=== PATIENT | male | born 1955 | race Caucasian/White ===

== ENCOUNTER 2019-11-02 12:15 | Inpatient (IN) | payer OTHER, MEDICARE ==
--- NOTE | 2019-11-02 13:11 | ER Document Report ---
ED Medical Screen (RME) - General Chief Complaint: Foot Pain Stated Complaint: LEFT FOOT PAIN Time Seen by Provider: 11/02/19 12:58 Mode of Arrival: Ambulatory Information source: Patient Notes: Patient states he was walking barefoot outside 4 days ago and stepped on something. Patient states since then he has developed redness, pain and swelling to left foot. Patient does have a history of diabetes and is noncompliant with his medications. Family member states that they encouraged him to start taking his diabetic medication 3 days ago. I have greeted and performed a rapid initial assessment of this patient. A comprehensive ED assessment and evaluation of the patient, analysis of test results and completion of the medical decision making process will be conducted by additional ED providers. TRAVEL OUTSIDE OF THE [place] IN LAST 30 DAYS: No - Related Data Allergies/Adverse Reactions: No Known Allergies Allergy (Unverified 02/13/15 18:48) Home Medications: Glipiside, Atorvastatin, Past Medical History - Past Medical History Cardiac Medical History: Reports: Hx Hypertension Endocrine Medical History: Reports: Hx Diabetes Mellitus Type 2 Renal/ Medical History: Reports: Hx Kidney Stones Physical Exam - Vital signs Vitals: Temp Pulse Resp BP Pulse Ox 97.6 F 93 16 159/64 H 99 11/02/19 12:20 11/02/19 12:20 11/02/19 12:20 11/02/19 12:20 11/02/19 12:20 - General Notes: Left pump tender, swollen and erythematous, puncture wound to plantar surface of left foot. Course - Vital Signs Vital signs: Temp Pulse Resp BP Pulse Ox 97.6 F 93 16 159/64 H 99 11/02/19 12:20 11/02/19 12:20 11/02/19 12:20 11/02/19 12:20 11/02/19 12:20
[2019-11-02 13:39] LABS: ABSOLUTE MONOCYTES (AUTO) 1.2 10^3/uL (0.1-1.4); ABSOLUTE NEUT (AUTO) 14.4 10^3/uL (1.7-8.2); BASOPHILS % (AUTO) 0.2 % (0-2); HEMATOCRIT 39.1 % (37.9-51.0); HEMOGLOBIN 13.6 g/dL (13.5-17.0); MEAN CORPUSCULAR HGB CONC 34.8 g/dL (32.0-36.0); MEAN CORPUSCULAR VOLUME 83 fl (80-97); MONOCYTES % (AUTO) 7.4 % (3-13); PLATELET COUNT 281 10^3/uL (150-450); RED BLOOD COUNT 4.69 10^6/uL (4.35-5.55); RED CELL DISTRIBUTION WIDTH 12.7 % (11.5-14.0); SEGMENTED NEUTROPHILS % (AUTO) 86.4 % (42-78); TOTAL CELLS COUNTED % (AUTO) 100 %; WHITE BLOOD COUNT 16.7 10^3/uL (4.0-10.5)
[2019-11-02 14:00] LABS: ALBUMIN 4.1 g/dL (3.5-5.0); ALKALINE PHOSPHATASE 99 U/L (38-126); ANION GAP 14 (5-19); ASPARTATE AMINO TRANSFERASE 21 U/L (17-59); BILIRUBIN,DIRECT 0.1 mg/dL (0.0-0.4); BILIRUBIN,TOTAL 1.3 mg/dL (0.2-1.3); BLOOD UREA NITROGEN 12 mg/dL (7-20); CALCIUM 9.2 mg/dL (8.4-10.2); CARBON DIOXIDE 25 mmol/L (22-30); CHLORIDE 97 mmol/L (98-107); GLUCOSE 271 mg/dL (75-110); POTASSIUM 3.9 mmol/L (3.6-5.0); TOTAL PROTEIN 8.1 g/dL (6.3-8.2)
--- NOTE | 2019-11-02 14:30 | ER Document Report ---
ED Extremity Problem, Lower - General Chief Complaint: Foot Pain Stated Complaint: LEFT FOOT PAIN Time Seen by Provider: 11/02/19 12:58 Mode of Arrival: Ambulatory Notes: Patient is a 64-year-old male with a history of type 2 diabetes and hypertension who presents to the emergency department with a chief complaint of left foot pain. Patient reports on which was 4 days ago he was walking barefoot around his house when he stepped on an object. Patient is unsure what type of object this was. Patient reports since then he has had increased swelling and redness to the left foot that is now streaking up the left lower leg. Patient reports minor pain. Patient reports that he is a type II diabetic and has been off of his medication for months. Patient reports on his family member made him start taking his glipizide again. Patient reports taking 5 mg of glipizide twice daily and has only been compliant for 3 days. Patient denies fever. Patient also reports [facility] and has not been compliant with his hypertension medications. Patient denies nausea, vomiting or diarrhea. Patient reports small amount of drainage coming from the bottom of the left foot. He reports this is bloody in nature. TRAVEL OUTSIDE OF THE [place] IN LAST 30 DAYS: No - Related Data Allergies/Adverse Reactions: No Known Allergies Allergy (Unverified 11/02/19 15:24) Home Medications: Glipiside, Atorvastatin, Past Medical History - General Information source: Patient - Social History Smoking Status: Unknown if Ever Smoked Lives with: Family Family History: Reviewed & Not Pertinent Patient has suicidal ideation: No Patient has homicidal ideation: No - Past Medical History Cardiac Medical History: Reports: Hx Hypertension Pulmonary Medical History: Reports: None EENT Medical History: Reports: None Neurological Medical History: Reports: None Endocrine Medical History: Reports: Hx Diabetes Mellitus Type 2 Renal/ Medical History: Reports: Hx Kidney Stones Malignancy Medical History: Reports None GI Medical History: Reports: None Musculoskeletal Medical History: Reports None Skin Medical History: Reports None Psychiatric Medical History: Reports: None Traumatic Medical History: Reports: None Infectious Medical History: Reports: None Review of Systems - Review of Systems Constitutional: No symptoms reported EENT: No symptoms reported Cardiovascular: No symptoms reported Respiratory: No symptoms reported Gastrointestinal: See HPI Genitourinary: No symptoms reported Male Genitourinary: No symptoms reported Musculoskeletal: See HPI Skin: See HPI Hematologic/Lymphatic: No symptoms reported Neurological/Psychological: No symptoms reported Physical Exam - Vital signs Vitals: Temp Pulse Resp BP Pulse Ox 97.6 F 93 16 159/64 H 99 11/02/19 12:20 11/02/19 12:20 11/02/19 12:20 11/02/19 12:20 11/02/19 12:20 Interpretation: Hypertensive - Notes Notes: GENERAL: Well-appearing, well-nourished and in no acute distress. HEAD: Atraumatic, normocephalic. EYES: Pupils equal round and reactive to light, extraocular movements intact, sclera anicteric, conjunctiva are normal. ENT: TMs normal, nares patent, oropharynx clear without exudates. Moist mucous membranes. NECK: Normal range of motion, supple without lymphadenopathy or JVD. LUNGS: Breath sounds clear to auscultation bilaterally and equal. No wheezes rales or rhonchi. HEART: Regular rate and rhythm without murmurs, rubs or gallops. ABDOMEN: Soft, nontender, normoactive bowel sounds. No guarding, no rebound. No masses appreciated. BACK: No cervical, thoracic, lumbar midline tenderness. No saddle anesthesia, normal distal neurovascular exam. GENITOURINARY: Deferred. EXTREMITIES: Patient does have significant erythema, edema and warmth noted to the left foot. There is streaking of redness up into the left lower extremity. Patient has a palpable +2 dorsalis pedis and posterior tibial pulse. +1 pitting edema to the left foot. There is an open wound to the plantar aspect of the left foot that is draining a small amount of blood. NEUROLOGICAL: Cranial nerves II through XII grossly intact. Normal speech, normal gait. PSYCH: Normal mood, normal affect. SKIN: Warm, Dry, normal turgor, no rashes or lesions noted. Course - Re-evaluation Re-evalutation: 11/02/19 16:52 The hospitalist was consulted for admission due to to significant left foot infection. Patient was updated and Dr. Piper to place admission orders and see patient. - Vital Signs Vital signs: Temp Pulse Resp BP Pulse Ox 99.1 F 95 16 148/68 H 100 11/02/19 16:48 11/02/19 16:48 11/02/19 16:48 11/02/19 16:48 11/02/19 16:48 - Laboratory Result Diagrams: 11/02/19 13:22 11/02/19 13:22 Laboratory results interpreted by me: 11/02/19 11/02/19 13:22 13:22 WBC 16.7 H Lymph % (Auto) 6.0 L Absolute Neuts (auto) 14.4 H Seg Neutrophils % 86.4 H Sodium 135.5 L Chloride 97 L Glucose 271 H 11/02/19 14:46 Patient has leukocytosis of 16.7. Laboratory 11/02/19 11/02/19 13:22 13:22 WBC 16.7 H RBC 4.69 Hgb 13.6 Hct 39.1 MCV 83 MCH 29.0 MCHC 34.8 RDW 12.7 Plt Count 281 Lymph % (Auto) 6.0 L Young % (Auto) 7.4 Eos % (Auto) 0.0 Baso % (Auto) 0.2 Absolute Neuts (auto) 14.4 H Absolute Lymphs (auto) 1.0 Absolute Monos (auto) 1.2 Absolute Eos (auto) 0.0 Absolute Basos (auto) 0.0 Seg Neutrophils % 86.4 H Sodium 135.5 L Potassium 3.9 Chloride 97 L Carbon Dioxide 25 Anion Gap 14 BUN 12 Creatinine 0.88 Est GFR ( Amer) > 60 Est GFR (MDRD) Non-Af > 60 Glucose 271 H Calcium 9.2 Total Bilirubin 1.3 Direct Bilirubin 0.1 Neonat Total Bilirubin Not Reportable Neonat Direct Bilirubin Not Reportable Neonat Indirect Bili Not Reportable AST 21 ALT 19 Alkaline Phosphatase 99 Total Protein 8.1 Albumin 4.1 - Diagnostic Test Radiology reviewed: Reports reviewed Radiology results interpreted by me: 11/02/19 16:53 Foot X-Ray 11/02/19 13:08 IMPRESSION: Soft tissue emphysema at the left foot, concerning for necrotizing soft tissue infection. Small radiopaque densities within the plantar soft tissues in between the 3rd and 4th proximal phalanges, please correlate with clinical exam to evaluate for foreign bodies. No plain radiographic evidence for osteomyelitis. If there is persistent clinical concern, contrast-enhanced MRI can be obtained for further evaluation. Discharge - Discharge Clinical Impression: Cellulitis of left foot, Left foot infection Diabetes type 2, uncontrolled Qualifiers: Glycemic state: with hyperglycemia Qualified Code(s): E11.65 - Type 2 diabetes mellitus with hyperglycemia Leukocytosis Qualifiers: Leukocytosis type: unspecified Qualified Code(s): D72.829 - Elevated white blood cell count, unspecified Condition: Stable Disposition: ADMITTED INPATIENT Admitting Provider: Veronique (Hospitalist) Unit Admitted: Medical Floor
--- NOTE | 2019-11-02 14:47 | RADIOLOGY REPORT (SQ) ---
EXAM DESCRIPTION: FOOT LEFT COMPLETE COMPLETED DATE/TIME: 11/02/2019 2:21 pm REASON FOR STUDY: PW, infection COMPARISON: None. NUMBER OF VIEWS: Three views. TECHNIQUE: AP, lateral and oblique radiographic images acquired of the left foot. LIMITATIONS: None. FINDINGS: MINERALIZATION: Normal. BONES: No acute fracture or dislocation. No cortical lucency or irregularity to suggest osteomyeliti s. Mild degenerative changes at the 1st metatarsophalangeal joint. Degenerative changes are noted a t the midfoot. There is a bony spur at the plantar aspect of the calcaneus. SOFT TISSUES: There is soft tissue emphysema at the dorsum of the midfoot and at the plantar aspect i n the region of the metatarsal heads. Radiopaque densities measuring up to 4 mm are noted within the plantar soft tissues in between the 3rd and 4th proximal phalanges. Vascular calcifications are pre sent. IMPRESSION: Soft tissue emphysema at the left foot, concerning for necrotizing soft tissue infection . Small radiopaque densities within the plantar soft tissues in between the 3rd and 4th proximal pha langes, please correlate with clinical exam to evaluate for foreign bodies. No plain radiographic ev idence for osteomyelitis. If there is persistent clinical concern, contrast-enhanced MRI can be obta ined for further evaluation. TECHNICAL DOCUMENTATION: JOB ID: [id number] [id number] 2010 [employer]- All Rights Reserved Reading location - IP/workstation name: [email or web address]
[2019-11-02] MEDS ORDERED: PROMETHAZINE HCL INJ 25 MG/1 ML VIAL IV PRN ×2 (15:26→20:31)
[2019-11-02] MEDS ORDERED: OXYCODONE-ACETAMINOPHEN 5-325 MG TABLET PO PRN (15:26)
[2019-11-02] MEDS ORDERED: ONDANSETRON HCL INJ/PF 4 MG/2 ML SDV IV PRN (15:26)
[2019-11-02] MEDS ORDERED: IPRATROPIUM/ALBUTEROL 0.5-2.5 MG/3 ML AMPUL NEB PRN (15:26)
[2019-11-02] MEDS ORDERED: NORMAL SALINE 1000 ML 1,000 ML IV PRN (15:26)
[2019-11-02] MEDS ORDERED: VANCOMYCIN HCL 0 MG in DEXTROSE 5%-WATER 250 ML IV NR (15:30)
[2019-11-02] MEDS ORDERED: DEXTROSE 40% GEL 15 GM TUBE PO PRN ×2 (15:31)
[2019-11-02] MEDS ORDERED: DEXTROSE 50%-WATER 25 GM/50 ML DISP.SYRIN IV PRN ×2 (15:31)
[2019-11-02] MEDS ORDERED: GLUCAGON,HUMAN RECOMB 1 MG INJ IM PRN (15:31)
--- NOTE | 2019-11-02 16:28 | PDOC H&P ---
History of Present Illness Admission Date/PCP: 11/02/19 15:49 History of Present Illness: BISMARK IBARRA is a 64 year old male past medical history of hypertension, hyperlipidemia, uncontrolled diabetes, presenting to ED complaining of left lower extremity swelling and pain. Patient stating that about 4 days ago he stepped on a pebble or a thorn did not make much of it went home, following day he noted some swelling, but is starting yesterday he noted that his left foot was becoming more swollen, tender, and erythematous. Pain is about 3/5 sharp and pulsating radiating proximally. Denies any fever, chills, headache, vision changes, shortness of breath, chest pain, nausea, abdominal pain, diarrhea, constipation or any urinary symptoms. Patient has history of diabetes nonco mpliant with medication but he started taking glipizide 5 mg p.o. twice daily 3 days ago. Past Medical History Cardiac Medical History: Reports: Hypertension Endocrine Medical History: Reports: Diabetes Mellitus Type 2 Social History Smoking Status: Unknown if Ever Smoked Family History Family History: Reviewed & Not Pertinent Parental Family History Reviewed: Yes Children Family History Reviewed: Yes Sibling(s) Family History Reviewed.: Yes Medication/Allergy Home Medications: Aspirin [Ecotrin 81 mg EC Tablet] 81 mg PO DAILY 11/02/19 Glipizide [Glucotrol 5 mg Tablet] 5 mg PO BID 11/02/19 Allergies/Adverse Reactions: No Known Allergies Allergy (Unverified 11/02/19 15:24) Review of Systems Review of Systems: as per hpi Physical Exam Vital Signs: Temp Pulse Resp BP Pulse Ox 97.6 F 93 16 159/64 H 99 11/02/19 12:20 11/02/19 12:20 11/02/19 12:20 11/02/19 12:20 11/02/19 12:20 Intake & Output 11/01/19 11/02/19 11/03/19 06:59 06:59 06:59 Weight 106.3 kg General appearance: PRESENT: no acute distress, well-developed, well-nourished Head exam: PRESENT: atraumatic, normocephalic Respiratory exam: PRESENT: clear to auscultation [place]. ABSENT: rales, rhonchi, wheezes Cardiovascular exam: PRESENT: RRR. ABSENT: diastolic murmur, rubs, systolic murmur GI/Abdominal exam: PRESENT: normal bowel sounds, soft. ABSENT: distended, guarding, mass, organolmegaly, rebound, tenderness Extremities exam: PRESENT: tenderness, other - Left foot diffuse swelling and erythema extending proximally to mid cuevas. There is a puncture site at the medial plantar aspect of the left foot with blood mixed with pus coming out. No crepitation appreciated on palpation of the left lower extremity. Neurological exam: PRESENT: alert, awake, oriented to person, oriented to place, oriented to time, oriented to situation, CN II-XII grossly intact. ABSENT: motor sensory deficit Results Laboratory Results: 11/02/19 13:22 11/02/19 13:22 11/02/19 11/02/19 13:22 13:22 WBC 16.7 H RBC 4.69 Hgb 13.6 Hct 39.1 MCV 83 MCH 29.0 MCHC 34.8 RDW 12.7 Plt Count 281 Seg Neutrophils % 86.4 H Sodium 135.5 L Potassium 3.9 Chloride 97 L Carbon Dioxide 25 Anion Gap 14 BUN 12 Creatinine 0.88 Est GFR ( Amer) > 60 Glucose 271 H Calcium 9.2 Total Bilirubin 1.3 AST 21 Alkaline Phosphatase 99 Total Protein 8.1 Albumin 4.1 Impressions: Foot X-Ray 11/02/19 13:08 IMPRESSION: Soft tissue emphysema at the left foot, concerning for necrotizing soft tissue infection. Small radiopaque densities within the plantar soft tissues in between the 3rd and 4th proximal phalanges, please correlate with clinical exam to evaluate for foreign bodies. No plain radiographic evidence for osteomyelitis. If there is persistent clinical concern, contrast-enhanced MRI can be obtained for further evaluation. Assessment and Plan - Diagnosis (1) Necrotizing fasciitis of lower leg Is this a current diagnosis for this admission?: Yes Plan: Left foot cellulitis or possible necrotizing fasciitis given x-ray findings. We will start on IV vancomycin and Rocephin and consult surgery for evaluation. (2) Cellulitis of left foot Is this a current diagnosis for this admission?: Yes Plan: Left foot cellulitis or possible necrotizing fasciitis given x-ray findings. We will start on IV vancomycin and Rocephin and consult surgery for evaluation. (3) Hypertension Is this a current diagnosis for this admission?: Yes Plan: Euvolemic. Normotensive. Restart home meds. Adjust meds as needed. Outpatient PCP follow-up. (4) Hyperlipidemia Is this a current diagnosis for this admission?: Yes Plan: Restart home meds. (5) Diabetes type 2, uncontrolled Qualifiers: Glycemic state: with hyperglycemia Qualified Code(s): E11.65 - Type 2 diabe lamont mellitus with hyperglycemia Is this a current diagnosis for this admission?: Yes Plan: History of noncompliance. Will obtain A1c. Diabetic diet. Diabetic education. Basal, prandial and correctional insulin. Hypoglycemic protocol. Accu-Chek.
[2019-11-02] MEDS: INSULIN LISPRO 100 UNIT/ML 3 ML VIAL SUBCUT SCH ×2 (16:58→22:59)
[2019-11-02] MEDS: CEFTRIAXONE 1 GM/D5W RTU 1 GM/50 ML RTUPB IV SCH (16:59)
[2019-11-02] MEDS: INSULIN GLARGINE,HUM.REC.ANLOG 1,000 UNIT/10 ML VIAL SUBCUT SCH (17:00)
--- NOTE | 2019-11-02 18:28 | PDOC CONSULTATION ---
Consultation Consult Date: 11/02/19 Provider Consulted: GEORGINA BENOIT Consult reason:: left foot gas gangrene History of Present Illness Admission Date/PCP: 11/02/19 15:49 History of Present Illness: BISMARK IBARRA is a 64 year old male, with type 2 diabetes, who presents emergency room with a complaint of left foot redness, swelling, pain, discoloration of the third and fourth proximal toes together with an ulcer of the plantar surface just below the third/fourth toe. The patient gives a history of walking outside barefoot when his left foot plantar surface was injured by in a sharp item, this happened 4 days ago. Since then the patient has been experiencing worsening of pain redness swelling of the foot. An x-ray of the left foot demonstrates subcutaneous gas no evidence of osteomyelitis possible foreign body between the third and fourth proximal toes. His white blood cell count is elevated 16,600. Past Medical History Cardiac Medical History: Reports: Hypertension Pulmonary Medical History: Reports: None EENT Medical History: Reports: None Neurological Medical History: Reports: None Endocrine Medical History: Reports: Diabetes Mellitus Type 2 Malignancy Medical History: Reports: None GI Medical History: Reports: None Musculoskeltal Medical History: Reports: None Skin Medical History: Reports: None Psychiatric Medical History: Reports: None Traumatic Medical History: Reports: None Infectious Medical History: Reports: None Social History Lives with: Family Smoking Status: Unknown if Ever Smoked - Advance Directive Resuscitation Status: Full Code Family History Family History: Reviewed & Not Pertinent Parental Family History Reviewed: No Children Family History Reviewed: No Sibling(s) Family History Reviewed.: No Medication/Allergy Home Medications: Aspirin [Ecotrin 81 mg EC Tablet] 81 mg PO DAILY 11/02/19 Glipizide [Glucotrol 5 mg Tablet] 5 mg PO BID 11/02/19 Allergies/Adverse Reactions: No Known Allergies Allergy (Unverified 11/02/19 15:24) Physical Exam Vital Signs: Temp Pulse Resp BP Pulse Ox 99.2 F 96 16 143/65 H 98 11/02/19 17:34 11/02/19 17:34 11/02/19 17:34 11/02/19 17:34 11/02/19 17:34 Intake & Output 11/01/19 11/02/19 11/03/19 06:59 06:59 06:59 Weight 105.9 kg General appearance: PRESENT: mild distress, obese, well-developed, well- nourished Head exam: PRESENT: atraumatic, normocephalic Eye exam: PRESENT: EOMI Mouth exam: PRESENT: moist, neck supple Teeth exam: PRESENT: edentulous - Partially, poor dentation Neck exam: PRESENT: full ROM Respiratory exam: PRESENT: clear to auscultation [place] Cardiovascular exam: PRESENT: RRR Pulses: PRESENT: other - Right foot = nonpalpable dorsalis pedis and posterior tibialis pulses GI/Abdominal exam: PRESENT: soft Rectal exam: PRESENT: deferred Extremities exam: PRESENT: full ROM, +2 edema - Left distal leg and foot, associated with edema of the dorsal left foot aspect and decreased sensation of the entire left foot (both dorsal and plantar surfaces) Musculoskeletal exam: PRESENT: full ROM Neurological exam: PRESENT: alert, awake, oriented to time, CN II-XII grossly intact Psychiatric exam: PRESENT: anxious Skin exam: PRESENT: warm Results Laboratory Results: 11/02/19 13:22 11/02/19 13:22 11/02/19 11/02/19 11/02/19 13:22 13:22 13:22 WBC 16.7 H RBC 4.69 Hgb 13.6 Hct 39.1 MCV 83 MCH 29.0 MCHC 34.8 RDW 12.7 Plt Count 281 Seg Neutrophils % 86.4 H Sodium 135.5 L Potassium 3.9 Chloride 97 L Carbon Dioxide 25 Anion Gap 14 BUN 12 Creatinine 0.88 Est GFR ( Amer) > 60 Glucose 271 H Calcium 9.2 Total Bilirubin 1.3 AST 21 Alkaline Phosphatase 99 C-Reactive Protein 220.3 H Total Protein 8.1 Albumin 4.1 Impressions: Foot X-Ray 11/02/19 13:08 IMPRESSION: Soft tissue emphysema at the left foot, concerning for necrotizing soft tissue infection. Small radiopaque densities within the plantar soft tissues in between the 3rd and 4th proximal phalanges, please correlate with clinical exam to evaluate for foreign bodies. No plain radiographic evidence for osteomyelitis. If there is persistent clinical concern, contrast-enhanced MRI can be obtained for further evaluation. Assessment & Plan - Diagnosis (1) Left foot gas gangrene Is this a current diagnosis for this admission?: Yes (2) Diabetes type 2, uncontrolled Qualifiers: Glycemic state: with hyperglycemia Qualified Code(s): E11.65 - Type 2 diabetes mellitus with hyperglycemia Is this a current diagnosis for this admission?: Yes - Plan Summary Plan Summary: Assessment: Left foot dark discoloration of the third and fourth toe together with diffuse fixed erythema of the dorsum of the foot and ulceration over the plantar surface just below the third and fourth toes Leukocytosis 16,700 X-ray left foot shows subcutaneous gas in the dorsal aspect a plantar aspect of the forefoot Poorly controlled type 2 diabetes Patient n.p.o. since yesterday except for water Plan: MRI left foot Aggressive debridement left forefoot with removal of third and fourth toe, possible removal of the toes, as of first stage operation Procedure, risks, benefits, complications, including the possibility of a transmetatarsal or below-knee amputation, bleeding, aggressive spreading infection, stroke, heart attack and have been discussed with the patient extends all the above decides to proceed after the MRI has been done Second stage operation will be done in the next 1 to 2 days either to close the wound or to extend/complete the amputation once the skin infection is under better local control Continue IV antibiotics Keep n.p.o. Preop stat EKG
[2019-11-02] MEDS ORDERED: METRONIDAZOLE 500 MG/NS RTU 500 MG/100 ML RTUPB IV ONE ×2 (18:45→19:31)
[2019-11-02] MEDS ORDERED: FENTANYL CITRATE INJ/PF 100 MCG/2 ML AMPUL ONE (19:10)
[2019-11-02] MEDS ORDERED: KETAMINE HCL INJ 500 MG/10 ML VIAL ONE (19:10)
[2019-11-02] MEDS ORDERED: MIDAZOLAM 2 MG/2 ML INJ ONE (19:10)
[2019-11-02] MEDS ORDERED: PROPOFOL INJ 200 MG/20 ML VIAL IV ONE ×2 (19:10→20:33)
[2019-11-02] MEDS ORDERED: LIDOCAINE 1% INJ-PF (10 MG/ML) 30 ML SDV ONE (19:23)
[2019-11-02] MEDS ORDERED: BUPIVACAINE HCL 0.25 % INJ/PF (2.5 MG/1 ML) 30 ML VIAL ONE (19:23)
[2019-11-02] MEDS ORDERED: VANCOMYCIN HCL INJ 500 MG VIAL ONE (19:31)
[2019-11-02] MEDS ORDERED: METOCLOPRAMIDE HCL INJ/PF 10 MG/2 ML SDV ONE (19:49)
[2019-11-02] MEDS ORDERED: ONDANSETRON HCL INJ/PF 4 MG/2 ML SDV ONE (19:49)
--- NOTE | 2019-11-02 19:55 | RADIOLOGY REPORT (SQ) ---
EXAM DESCRIPTION: MRI LT LOWER EXTREMITY WITHOUT COMPLETED DATE/TIME: 11/02/2019 6:16 pm COMPARISON: Radiographs left foot, same date. TECHNIQUE: Multiplanar imaging of the left foot to include T1-weighted, postcontrast T1-weighted, an d T2-weighted images. CONTRAST TYPE AND DOSE: 20 mL Dotarem. RENAL FUNCTION: GFR > 60. LIMITATIONS: There is significant motion artifact on all series which limits evaluation. Extremely limited evaluation of the phalanges. FINDINGS: BONE MARROW: Extremely limited evaluation due to degree of motion. Within the limits of t he exam there is no evidence of alteration of bone marrow signal. SOFT TISSUES: Soft tissue swelling and skin thickening at the plantar surface overlying the 3rd digit distal metatarsal/proximal phalanx. Tiny foci of hypointense signal within this area of likely repr esent foci of gas. Radiopaque foreign bodies are not excluded. No focal drainable abscess. Normal appearance the tendons. OTHER: No other significant finding. IMPRESSION: 1. Extremely limited evaluation due to degree of motion on all series. Within the limits of the exam ination, there is no evidence of osteomyelitis. 2. Skin thickening and subcutaneous edema involving the plantar surface at the distal aspect of the 3 rd digit metatarsal and proximal phalanx. Foci of gas as seen on radiograph. The possible radiopaqu e foreign bodies are not definitely identified on MRI. COMMENT: Findings discussed with Dr. Greenberg on 11/02/2019 at 1949 hours. TECHNICAL DOCUMENTATION: JOB ID: [id number] 2010 [employer]- All Rights Reserved REASON FOR STUDY: Possible necrotizing fascitis Possible necrotizing fascitis. Infection. Left foot infection. Stepped on something barefoot on 10/28/2019. Burning, drainage, infection, radiating pain and redness, open wound and swelling at the sparkle ntar surface left foot. Radiograph demonstrated radiopaque foreign body and subcutaneous gas between the 3rd and 4th digit proximal phalanges. Diabetic. Reading location - IP/workstation name: [email or web address]
[2019-11-02] MEDS: VANCOMYCIN HCL 1,000 MG in DEXTROSE 5%-WATER 250 ML IV SCH (19:56)
[2019-11-02 20:26] LABS: URINE AMPHETAMINES SCREEN NEGATIVE; URINE BARBITURATES SCREEN NEGATIVE; URINE BENZODIAZEPINES SCREEN NEGATIVE; URINE COCAINE SCREEN NEGATIVE; URINE MARIJUANA (THC) SCREEN NEGATIVE; URINE METHADONE SCREEN NEGATIVE; URINE PHENCYCLIDINE SCREEN NEGATIVE
[2019-11-02] MEDS ORDERED: MEPERIDINE HCL/PF INJ 25 MG/1 ML DISP.SYRIN IV PRN (20:31)
[2019-11-02] MEDS ORDERED: DIPHENHYDRAMINE HCL 50 MG/ML VIAL IV PRN (20:31)
[2019-11-02] MEDS ORDERED: MORPHINE SULFATE 10 MG/ML INJ IV PRN (20:31)
[2019-11-02] MEDS ORDERED: FENTANYL CITRATE INJ/PF 100 MCG/2 ML AMPUL IV PRN ×3 (20:31)
[2019-11-02] MEDS ORDERED: ACETAMINOPHEN 1,000 MG/100 ML RTUPB IV ONE ×2 (21:37→22:30)
--- NOTE | 2019-11-02 21:56 | Operative Report ---
Nonrecallable Operative Report DATE OF SURGERY: 11/02/19 PREOPERATIVE DIAGNOSIS: Gas gangrene of the left third and fourth toes extending to the forefoot POSTOPERATIVE DIAGNOSIS: Same; abscess of the left forefoot OPERATION: Left transmetatarsal amputation SURGEON: GEORGINA BENOIT ANESTHESIA: Other - 3 mL's 1% lidocaine TISSUE REMOVED OR ALTERED: Left forefoot COMPLICATIONS: None ESTIMATED BLOOD LOSS: Less than 5 mL INTRAOPERATIVE FINDINGS: Purulent collection and necrosis of the left forefoot plantar surface as well as necrosis of the deep left forefoot soft tissues PROCEDURE: The procedure was done in the procedure room, the patient was placed in supine position, deep MAC anesthesia was induced by anesthesiologist, Mai catheter was inserted, the left foot and lower leg were prepped and draped in a sterile fashion. An Esmarch bandage was placed around the foot and ankle and the tourniquet was inflated to about 150 mm above the systolic blood pressure. The Esmarch band was removed. Skin just proximal to the toes was marked with a surgical marker and a skin incision was made with a #10 blade extending from the medial to the lateral aspect of the foot on both the dorsal and plantar surface of the foot. This was deepened to the subcutaneous tissue with Bovie. Necrotic tissue as well as purulent collection was identfied during the section. This was carried more proximally until good healthy tissue was identified. At this point the tarsal bones were cleared from the soft tissue using a periosteal elevator and a surgical saw was used to divide the metatarsal bones along the same line. The forefoot was then removed from the surgical field and sent to pathology. The surgical field was irrigated with normal saline until clear. The skin edges of the dorsal and plantar flaps were trimmed to length, a separate stab wound was made and 1/4 inch [place] drain was inserted through the incision and left deep in the TMA wound. The skin edges approximated with interrupted deep inverted 0 Vicryl sutures and the skin edges were closed with interrupted horizontal mattress 2-0 nylon sutures. Xeroform gauze, fluff 4 x 4's, ABD Kerlix roll and John [place] bandage were applied following deflation of the tourniquet. The tourniquet time was 53 minutes The patient tolerated procedure well and was transferred to recovery room in satisfactory conditions.
[2019-11-02] MEDS ORDERED: NORMAL SALINE 1000 ML 1,000 ML IV ONE (22:30)
[2019-11-02] MEDS: FAMOTIDINE 20 MG TABLET PO SCH (23:00)
[2019-11-03] MEDS: METRONIDAZOLE 500 MG/NS RTU 500 MG/100 ML RTUPB IV SCH ×5 (00:11→23:40)
[2019-11-03] MEDS: KETOROLAC TROMETHAMINE INJ/PF 30 MG/1 ML SDV IV SCH ×5 (00:11→23:44)
[2019-11-03] MEDS: NORMAL SALINE 1000 ML 1,000 ML IV PRN (00:11)
[2019-11-03] MEDS ORDERED: VANCOMYCIN HCL INJ 1000 MG VIAL ONE (01:37)
[2019-11-03] MEDS ORDERED: RINGERS SOLUTION,LACTATED 1,000 ML IV ONE (03:00)
[2019-11-03] MEDS: VANCOMYCIN HCL 1,000 MG in DEXTROSE 5%-WATER 250 ML IV SCH (03:29)
[2019-11-03] MEDS: ACETAMINOPHEN 325 MG TABLET PO PRN ×2 (03:48→10:15)
[2019-11-03 06:32] LABS: HEMATOCRIT 30.1 % (37.9-51.0); MEAN CORPUSCULAR HGB CONC 34.8 g/dL (32.0-36.0); MEAN CORPUSCULAR VOLUME 83 fl (80-97); PLATELET COUNT 202 10^3/uL (150-450); RED BLOOD COUNT 3.62 10^6/uL (4.35-5.55); RED CELL DISTRIBUTION WIDTH 12.7 % (11.5-14.0); WHITE BLOOD COUNT 11.6 10^3/uL (4.0-10.5)
[2019-11-03 06:33] LABS: INTERNATIONAL RATION (INR) 1.29; PROTHROMBIN TIME 16.2 SEC (11.4-15.4)
[2019-11-03 06:34] LABS: PARTIAL THROMBOPLASTIN TIME 39.7 SEC (23.5-35.8)
[2019-11-03 06:41] LABS: HEMOGLOBIN 10.5 g/dL (13.5-17.0)
[2019-11-03 06:46] LABS: ANION GAP 7 (5-19); BLOOD UREA NITROGEN 13 mg/dL (7-20); CALCIUM 7.5 mg/dL (8.4-10.2); CARBON DIOXIDE 23 mmol/L (22-30); CHLORIDE 105 mmol/L (98-107); CHOLESTEROL 108.86 mg/dL (0-200); GLUCOSE 187 mg/dL (75-110); POTASSIUM 3.9 mmol/L (3.6-5.0); TRIGLYCERIDES 82 mg/dL (<150)
[2019-11-03 06:56] LABS: DIRECT LDL 76 mg/dL (<100)
[2019-11-03] MEDS: INSULIN LISPRO 100 UNIT/ML 3 ML VIAL SUBCUT SCH ×4 (07:58→22:14)
[2019-11-03] MEDS ORDERED: ENOXAPARIN SODIUM INJ 40 MG/0.4 ML DISP.SYRIN SUBCUT SCH (10:00)
[2019-11-03] MEDS: FAMOTIDINE 20 MG TABLET PO SCH ×2 (10:15→22:15)
[2019-11-03] MEDS: DOCUSATE SODIUM 100 MG CAPSULE PO SCH (10:15)
[2019-11-03] MEDS: ENOXAPARIN SODIUM INJ 40 MG/0.4 ML DISP.SYRIN SUBCUT SCH (10:15)
[2019-11-03] MEDS: INSULIN GLARGINE,HUM.REC.ANLOG 1,000 UNIT/10 ML VIAL SUBCUT SCH (10:16)
[2019-11-03] MEDS: VANCOMYCIN HCL 1,250 MG in DEXTROSE 5%-WATER 250 ML IV SCH ×2 (10:17→17:36)
--- NOTE | 2019-11-03 13:34 | EKG REPORT ---
SEVERITY:- ABNORMAL ECG - SINUS RHYTHM LEFT VENTRICULAR HYPERTROPHY NONSPECIFIC ST-T CHANGES- INFERIOR LEADS : Confirmed by: Bryn Beckman MD 03-Nov-2019 13:33:25
--- NOTE | 2019-11-03 16:25 | PDOC PROGRESS REPORT ---
Subjective Progress Note for:: 11/03/19 Subjective:: No complaints, according to the patient's daughter the patient has been moving his left lower extremity quite actively today and has a spot of fresh blood through the clean dressings due to the patient aggressive left lower extremity activity Reason For Visit: CELLULITIS Physical Exam Vital Signs: Temp Pulse Resp BP Pulse Ox 97.8 F 80 18 125/62 96 11/03/19 15:12 11/03/19 15:12 11/03/19 15:12 11/03/19 15:12 11/03/19 15:12 Intake & Output 11/02/19 11/03/19 11/04/19 06:59 06:59 06:59 Intake Total 2850 240 Output Total 450 300 Balance 2400 -60 Weight 109.9 kg General appearance: PRESENT: no acute distress, obese Extremities exam: PRESENT: other - Left lower extremity = TMA site covered by dressings clean, and intact with medial blood staining Results Laboratory Results: 11/03/19 05:57 11/03/19 05:57 11/02/19 11/03/19 11/03/19 13:22 05:57 05:57 WBC 11.6 H RBC 3.62 L Hgb 10.5 L D Hct 30.1 L MCV 83 MCH 29.0 MCHC 34.8 RDW 12.7 Plt Count 202 Sodium 134.5 L Potassium 3.9 Chloride 105 Carbon Dioxide 23 Anion Gap 7 BUN 13 Creatinine 0.65 Est GFR ( Amer) > 60 Glucose 187 H Calcium 7.5 L Magnesium 2.1 C-Reactive Protein 220.3 H Triglycerides 82 Cholesterol 108.86 LDL Cholesterol Direct 76 VLDL Cholesterol 16.0 HDL Cholesterol 24 L Impressions: Lower Extremity MRI 11/02/19 00:00 IMPRESSION: 1. Extremely limited evaluation due to degree of motion on all series. Within the limits of the examination, there is no evidence of osteomyelitis. 2. Skin thickening and subcutaneous edema involving the plantar surface at the distal aspect of the 3rd digit metatarsal and proximal phalanx. Foci of gas as seen on radiograph. The possible radiopaque foreign bodies are not definitely identified on MRI. Foot X-Ray 11/02/19 13:08 IMPRESSION: Soft tissue emphysema at the left foot, concerning for necrotizing soft tissue infection. Small radiopaque densities within the plantar soft tissues in between the 3rd and 4th proximal phalanges, please correlate with clinical exam to evaluate for foreign bodies. No plain radiographic evidence for osteomyelitis. If there is persistent clinical concern, contrast-enhanced MRI can be obtained for further evaluation. Assessment & Plan - Diagnosis (1) Left foot gas gangrene Is this a current diagnosis for this admission?: Yes (2) Diabetes type 2, uncontrolled Qualifiers: Glycemic state: with hyperglycemia Qualified Code(s): E11.65 - Type 2 diabetes mellitus with hyperglycemia Is this a current diagnosis for this admission?: Yes - Time Time Spent with patient: 15-24 minutes - Plan Summary Plan Summary: Assessment: Postoperative day #1 following left TMA secondary to gas gangrene of the third and fourth toes and left forefoot Vital signs are stable, patient afebrile The patient appears to be poorly compliant and keeps moving it quite aggressively his left lower extremity even though he is in bed Plan: Recommend to remain at strict bedrest with left lower extremity elevated TMA site to be unveiled tomorrow
[2019-11-03] MEDS: CEFTRIAXONE 1 GM/D5W RTU 1 GM/50 ML RTUPB IV SCH (17:36)
--- NOTE | 2019-11-03 18:09 | PDOC PROGRESS REPORT ---
Subjective Progress Note for:: 11/03/19 Subjective:: Patient had left transmetatarsal amputation today. Currently admits to some pain in his left lower extremity. Otherwise denies any fever or chills. Feels comfortable at the time of interview this morning. Reason For Visit: CELLULITIS Physical Exam Vital Signs: Temp Pulse Resp BP Pulse Ox 97.8 F 80 18 125/62 96 11/03/19 15:12 11/03/19 15:12 11/03/19 15:12 11/03/19 15:12 11/03/19 15:12 Intake & Output 11/02/19 11/03/19 11/04/19 06:59 06:59 06:59 Intake Total 2850 590 Output Total 450 300 Balance 2400 290 Weight 109.9 kg General appearance: PRESENT: no acute distress, cooperative Neck exam: ABSENT: JVD Respiratory exam: PRESENT: clear to auscultation [place], unlabored. ABSENT: tachypnea, wheezes Cardiovascular exam: PRESENT: RRR, +S1, +S2. ABSENT: tachycardia GI/Abdominal exam: PRESENT: soft. ABSENT: rebound, rigid, tenderness Musculoskeletal exam: PRESENT: other - Left foot amputation stump and clean dressing. Results Laboratory Results: 11/03/19 05:57 11/03/19 05:57 11/03/19 11/03/19 05:57 05:57 WBC 11.6 H RBC 3.62 L Hgb 10.5 L D Hct 30.1 L MCV 83 MCH 29.0 MCHC 34.8 RDW 12.7 Plt Count 202 Sodium 134.5 L Potassium 3.9 Chloride 105 Carbon Dioxide 23 Anion Gap 7 BUN 13 Creatinine 0.65 Est GFR ( Amer) > 60 Glucose 187 H Calcium 7.5 L Magnesium 2.1 Triglycerides 82 Cholesterol 108.86 LDL Cholesterol Direct 76 VLDL Cholesterol 16.0 HDL Cholesterol 24 L Impressions: Lower Extremity MRI 11/02/19 00:00 IMPRESSION: 1. Extremely limited evaluation due to degree of motion on all series. Within the limits of the examination, there is no evidence of osteomyelitis. 2. Skin thickening and subcutaneous edema involving the plantar surface at the distal aspect of the 3rd digit metatarsal and proximal phalanx. Foci of gas as seen on radiograph. The possible radiopaque foreign bodies are not definitely identified on MRI. Foot X-Ray 11/02/19 13:08 IMPRESSION: Soft tissue emphysema at the left foot, concerning for necrotizing soft tissue infection. Small radiopaque densities within the plantar soft tissues in between the 3rd and 4th proximal phalanges, please correlate with clinical exam to evaluate for foreign bodies. No plain radiographic evidence for osteomyelitis. If there is persistent clinical concern, contrast-enhanced MRI can be obtained for further evaluation. Assessment and Plan - Diagnosis (1) Left foot gas gangrene Is this a current diagnosis for this admission?: Yes Plan: Status post left transmetatarsal amputation 11/03/2019 Continue with broad-spectrum antibiotic coverage with vancomycin, ceftriaxone and Flagyl. Will place on Percocet for pain control. Follow-up blood cultures and wound cultures Surgery following (2) Diabetes type 2, uncontrolled Qualifiers: Glycemic state: with hyperglycemia Qualified Code(s): E11.65 - Type 2 diabetes mellitus with hyperglycemia Is this a current diagnosis for this admission?: Yes Plan: History of noncompliance. Continue patient's dose of glipizide 5 mg twice daily. However hemoglobin A1c is 9.9 and patient will likely ultimately require insulin. I will have conversation with patient tomorrow. Continue sliding scale insulin and Accu-Cheks (3) Hypertension Is this a current diagnosis for this admission?: Yes Plan: Documented history of hypertension. However patient is remaining normotensive while in the hospital and home medication reconciliation shows that patient is not on any antihypertensives. We will continue to monitor vital signs for now. - Time Time Spent with patient: 15-24 minutes
[2019-11-03] MEDS: GLIPIZIDE 5 MG TABLET PO SCH (18:27)
[2019-11-03] MEDS: ATORVASTATIN CALCIUM 10 MG TABLET PO SCH (22:15)
[2019-11-03] MEDS: OXYCODONE-ACETAMINOPHEN 5-325 MG TABLET PO PRN (22:15)
[2019-11-04] MEDS: VANCOMYCIN HCL 1,250 MG in DEXTROSE 5%-WATER 250 ML IV SCH ×3 (02:22→18:55)
[2019-11-04 03:12] LABS: APPEARANCE,URINE CLEAR; BILIRUBIN,URINE NEGATIVE (NEGATIVE); COLOR,URINE YELLOW; GLUCOSE, URINE NEGATIVE (NEGATIVE); KETONES,URINE NEGATIVE (NEGATIVE); LEUKOCYTE ESTERASE,URINE TRACE (NEGATIVE); NITRITE,URINE NEGATIVE (NEGATIVE); PROTEIN,URINE NEGATIVE (NEGATIVE); URINE SPECIFIC GRAVITY 1.008; UROBILINOGEN,URINE NEGATIVE mg/dL (<2.0)
[2019-11-04] MEDS: METRONIDAZOLE 500 MG/NS RTU 500 MG/100 ML RTUPB IV SCH ×3 (05:45→17:51)
[2019-11-04] MEDS: KETOROLAC TROMETHAMINE INJ/PF 30 MG/1 ML SDV IV SCH ×3 (05:46→17:51)
[2019-11-04] MEDS: OXYCODONE-ACETAMINOPHEN 5-325 MG TABLET PO PRN ×2 (05:46→19:27)
[2019-11-04 06:43] LABS: ABSOLUTE BASOPHILS # (AUTO) 0.1 10^3/uL (0.0-0.2); ABSOLUTE EOSINOPHILS # (AUTO) 0.1 10^3/uL (0.0-0.6); ABSOLUTE LYMPHOCYTES (AUTO) 2.5 10^3/uL (0.5-4.7); ABSOLUTE MONOCYTES (AUTO) 0.9 10^3/uL (0.1-1.4); ABSOLUTE NEUT (AUTO) 7.8 10^3/uL (1.7-8.2); BASOPHILS % (AUTO) 0.5 % (0-2); HEMATOCRIT 31.3 % (37.9-51.0); HEMOGLOBIN 10.9 g/dL (13.5-17.0); LYMPHOCYTES % (AUTO) 22.2 % (13-45); MEAN CORPUSCULAR HEMOGLOBIN 29.2 pg (27.0-33.4); MEAN CORPUSCULAR VOLUME 83 fl (80-97); PLATELET COUNT 233 10^3/uL (150-450); RED BLOOD COUNT 3.75 10^6/uL (4.35-5.55); RED CELL DISTRIBUTION WIDTH 12.9 % (11.5-14.0); SEGMENTED NEUTROPHILS % (AUTO) 68.3 % (42-78); TOTAL CELLS COUNTED % (AUTO) 100 %; WHITE BLOOD COUNT 11.4 10^3/uL (4.0-10.5)
[2019-11-04 07:05] LABS: ANION GAP 11 (5-19); BLOOD UREA NITROGEN 14 mg/dL (7-20); CARBON DIOXIDE 24 mmol/L (22-30); CHLORIDE 103 mmol/L (98-107); GLUCOSE 86 mg/dL (75-110); POTASSIUM 4.1 mmol/L (3.6-5.0)
[2019-11-04] MEDS: INSULIN LISPRO 100 UNIT/ML 3 ML VIAL SUBCUT SCH ×4 (07:56→22:17)
[2019-11-04] MEDS: DOCUSATE SODIUM 100 MG CAPSULE PO SCH (09:03)
[2019-11-04] MEDS: GLIPIZIDE 5 MG TABLET PO SCH ×2 (09:03→17:51)
[2019-11-04] MEDS: ASPIRIN 81 MG TABLET, ENT COATED PO SCH (09:03)
[2019-11-04] MEDS: ENOXAPARIN SODIUM INJ 40 MG/0.4 ML DISP.SYRIN SUBCUT SCH (09:04)
[2019-11-04] MEDS: FAMOTIDINE 20 MG TABLET PO SCH ×2 (09:04→22:17)
[2019-11-04] MEDS: NORMAL SALINE 1000 ML 1,000 ML IV PRN (09:05)
[2019-11-04] MEDS ORDERED: ATORVASTATIN CALCIUM 20 MG TABLET PO SCH (10:00)
--- NOTE | 2019-11-04 10:12 | PDOC PROGRESS REPORT ---
Subjective Progress Note for:: 11/04/19 Subjective:: feels ok min pain Reason For Visit: CELLULITIS Physical Exam Vital Signs: Temp Pulse Resp BP Pulse Ox 98.7 F 64 14 127/64 H 95 11/04/19 07:31 11/04/19 08:52 11/04/19 08:52 11/04/19 07:31 11/04/19 08:52 Intake & Output 11/03/19 11/04/19 11/05/19 06:59 06:59 06:59 Intake Total 2850 3150 Output Total 450 750 Balance 2400 2400 Weight 109.9 kg 112.5 kg General appearance: PRESENT: no acute distress Head exam: PRESENT: normocephalic Eye exam: PRESENT: EOMI Ear exam: PRESENT: normal external ear exam Mouth exam: PRESENT: moist Neck exam: PRESENT: full ROM Respiratory exam: PRESENT: clear to auscultation [place] Cardiovascular exam: PRESENT: RRR Pulses: PRESENT: normal radial pulses, normal femoral pulses Breast: PRESENT: Normal GI/Abdominal exam: PRESENT: soft Rectal exam: PRESENT: deferred Extremities exam: PRESENT: full ROM, other - left transmet amp site clean with susan in place wound clean no purulent drainage skin flap viable Neurological exam: PRESENT: alert, awake, oriented to person, oriented to place Psychiatric exam: PRESENT: appropriate affect Skin exam: PRESENT: dry Results Laboratory Results: 11/04/19 06:26 11/04/19 06:26 11/04/19 11/04/19 11/04/19 02:47 06:26 06:26 WBC 11.4 H RBC 3.75 L Hgb 10.9 L Hct 31.3 L MCV 83 MCH 29.2 MCHC 35.0 RDW 12.9 Plt Count 233 Seg Neutrophils % 68.3 Sodium 138.4 Potassium 4.1 Chloride 103 Carbon Dioxide 24 Anion Gap 11 BUN 14 Creatinine 0.77 Est GFR ( Amer) > 60 Glucose 86 Calcium 8.0 L Urine Color YELLOW Urine Appearance CLEAR Urine pH 5.0 Ur Specific [place] 1.008 Urine Protein NEGATIVE Urine Glucose (UA) NEGATIVE Urine Ketones NEGATIVE Urine Blood NEGATIVE Urine Nitrite NEGATIVE Ur Leukocyte Esterase TRACE H Urine WBC (Auto) 3 Urine RBC (Auto) 0 11/02/19 20:22 Foot - Left Gram Stain - Final Impressions: Lower Extremity MRI 11/02/19 00:00 IMPRESSION: 1. Extremely limited evaluation due to degree of motion on all series. Within the limits of the examination, there is no evidence of osteomyelitis. 2. Skin thickening and subcutaneous edema involving the plantar surface at the distal aspect of the 3rd digit metatarsal and proximal phalanx. Foci of gas as seen on radiograph. The possible radiopaque foreign bodies are not definitely identified on MRI. Foot X-Ray 11/02/19 13:08 IMPRESSION: Soft tissue emphysema at the left foot, concerning for necrotizing soft tissue infection. Small radiopaque densities within the plantar soft tissues in between the 3rd and 4th proximal phalanges, please correlate with clinical exam to evaluate for foreign bodies. No plain radiographic evidence for osteomyelitis. If there is persistent clinical concern, contrast-enhanced MRI can be obtained for further evaluation. Assessment & Plan - Time Time Spent with patient: 35 or more minutes - Plan Summary Plan Summary: s/p left transmet amputation for gas gangrene of left foot wound clean min drainage skin edges viable plan, cont iv abx will prob martin davis in am
[2019-11-04] MEDS: INSULIN GLARGINE,HUM.REC.ANLOG 1,000 UNIT/10 ML VIAL SUBCUT SCH (12:14)
[2019-11-04] MEDS: CEFTRIAXONE 1 GM/D5W RTU 1 GM/50 ML RTUPB IV SCH (17:51)
[2019-11-04 18:15] LABS: VANCOMYCIN,TROUGH 15.3 ug/mL (5.0-20.0)
--- NOTE | 2019-11-04 18:36 | PDOC PROGRESS REPORT ---
Subjective Progress Note for:: 11/04/19 Subjective:: Patient is doing well today. Pain is only mild to minimal at the site of the stump. Pain medications available. Patient denies any shortness of breath at this time. Denies any chest pain. Denies fevers. Reason For Visit: CELLULITIS Physical Exam Vital Signs: Temp Pulse Resp BP Pulse Ox 97.3 F 69 16 132/64 H 100 11/04/19 15:17 11/04/19 15:17 11/04/19 15:17 11/04/19 15:17 11/04/19 15:17 Intake & Output 11/03/19 11/04/19 11/05/19 06:59 06:59 06:59 Intake Total 2850 3150 1142 Output Total 450 750 350 Balance 2400 2400 792 Weight 109.9 kg 112.5 kg General appearance: PRESENT: no acute distress, cooperative Neck exam: ABSENT: JVD Respiratory exam: PRESENT: clear to auscultation [place], unlabored. ABSENT: tachypnea, wheezes Cardiovascular exam: PRESENT: RRR, +S1, +S2. ABSENT: tachycardia GI/Abdominal exam: PRESENT: soft. ABSENT: rebound, rigid, tenderness Musculoskeletal exam: PRESENT: other - Stump of left TMP amputation history wound without any evidence of infection, mild erythema but no purulence. Neurological exam: PRESENT: alert, awake Results Laboratory Results: 11/04/19 06:26 11/04/19 17:32 11/04/19 11/04/19 11/04/19 02:47 06:26 06:26 WBC 11.4 H RBC 3.75 L Hgb 10.9 L Hct 31.3 L MCV 83 MCH 29.2 MCHC 35.0 RDW 12.9 Plt Count 233 Seg Neutrophils % 68.3 Sodium 138.4 Potassium 4.1 Chloride 103 Carbon Dioxide 24 Anion Gap 11 BUN 14 Creatinine 0.77 Est GFR ( Amer) > 60 Glucose 86 Calcium 8.0 L Urine Color YELLOW Urine Appearance CLEAR Urine pH 5.0 Ur Specific [place] 1.008 Urine Protein NEGATIVE Urine Glucose (UA) NEGATIVE Urine Ketones NEGATIVE Urine Blood NEGATIVE Urine Nitrite NEGATIVE Ur Leukocyte Esterase TRACE H Urine WBC (Auto) 3 Urine RBC (Auto) 0 11/04/19 17:32 WBC RBC Hgb Hct MCV MCH MCHC RDW Plt Count Seg Neutrophils % Sodium Potassium Chloride Carbon Dioxide Anion Gap BUN Creatinine 0.72 Est GFR ( Amer) > 60 Glucose Calcium Urine Color Urine Appearance Urine pH Ur Specific [place] Urine Protein Urine Glucose (UA) Urine Ketones Urine Blood Urine Nitrite Ur Leukocyte Esterase Urine WBC (Auto) Urine RBC (Auto) 11/02/19 20:22 Foot - Left Gram Stain - Final 11/02/19 17:05 Foot - Bottom Gram Stain - Final Impressions: Lower Extremity MRI 11/02/19 00:00 IMPRESSION: 1. Extremely limited evaluation due to degree of motion on all series. Within the limits of the examination, there is no evidence of osteomyelitis. 2. Skin thickening and subcutaneous edema involving the plantar surface at the distal aspect of the 3rd digit metatarsal and proximal phalanx. Foci of gas as seen on radiograph. The possible radiopaque foreign bodies are not definitely identified on MRI. Foot X-Ray 11/02/19 13:08 IMPRESSION: Soft tissue emphysema at the left foot, concerning for necrotizing soft tissue infection. Small radiopaque densities within the plantar soft tissues in between the 3rd and 4th proximal phalanges, please correlate with clinical exam to evaluate for foreign bodies. No plain radiographic evidence for osteomyelitis. If there is persistent clinical concern, contrast-enhanced MRI can be obtained for further evaluation. Assessment and Plan - Diagnosis (1) Left foot gas gangrene Is this a current diagnosis for this admission?: Yes Plan: Status post left transmetatarsal amputation 11/03/2019 Continue with broad-spectrum antibiotic coverage with vancomycin, ceftriaxone and Flagyl. Continue Percocet and Toradol for pain control Wound culture growing polymicrobial species as expected. Awaiting complete speciation and susceptibilities. Blood cultures negative for 48 hours now Surgery following (2) Diabetes type 2, uncontrolled Qualifiers: Glycemic state: with hyperglycemia Qualified Code(s): E11.65 - Type 2 diabetes mellitus with hyperglycemia Is this a current diagnosis for this admission?: Yes Plan: Continue patient's dose of glipizide 5 mg twice daily. However hemoglobin A1c is 9.9 and patient will likely ultimately require insulin. On Lantus 12 units. Sugars within acceptable region today. Continue sliding scale insulin and Accu-Cheks (3) Hypertension Is this a current diagnosis for this admission?: Yes Plan: Documented history of hypertension. However patient is remaining normotensive while in the hospital and home medication reconciliation shows that patient is not on any antihypertensives. We will continue to monitor vital signs for now. - Time Time Spent with patient: 15-24 minutes
[2019-11-04] MEDS: TEMAZEPAM 7.5 MG CAPSULE PO PRN (22:17)
[2019-11-04] MEDS: ATORVASTATIN CALCIUM 10 MG TABLET PO SCH (22:17)
[2019-11-05] MEDS: METRONIDAZOLE 500 MG/NS RTU 500 MG/100 ML RTUPB IV SCH ×4 (00:01→18:04)
[2019-11-05] MEDS: VANCOMYCIN HCL 1,250 MG in DEXTROSE 5%-WATER 250 ML IV SCH (02:06)
[2019-11-05] MEDS: OXYCODONE-ACETAMINOPHEN 5-325 MG TABLET PO PRN ×3 (05:03→21:05)
[2019-11-05 06:24] LABS: ABSOLUTE EOSINOPHILS # (AUTO) 0.1 10^3/uL (0.0-0.6); ABSOLUTE LYMPHOCYTES (AUTO) 1.9 10^3/uL (0.5-4.7); ABSOLUTE MONOCYTES (AUTO) 0.7 10^3/uL (0.1-1.4); ABSOLUTE NEUT (AUTO) 5.4 10^3/uL (1.7-8.2); BASOPHILS % (AUTO) 0.5 % (0-2); EOSINOPHILS % (AUTO) 1.7 % (0-6); HEMATOCRIT 31.6 % (37.9-51.0); LYMPHOCYTES % (AUTO) 23.3 % (13-45); MEAN CORPUSCULAR HEMOGLOBIN 29.1 pg (27.0-33.4); MEAN CORPUSCULAR HGB CONC 34.9 g/dL (32.0-36.0); MEAN CORPUSCULAR VOLUME 83 fl (80-97); MONOCYTES % (AUTO) 8.4 % (3-13); PLATELET COUNT 269 10^3/uL (150-450); RED BLOOD COUNT 3.79 10^6/uL (4.35-5.55); SEGMENTED NEUTROPHILS % (AUTO) 66.1 % (42-78); TOTAL CELLS COUNTED % (AUTO) 100 %; WHITE BLOOD COUNT 8.2 10^3/uL (4.0-10.5)
[2019-11-05 07:06] LABS: ANION GAP 7 (5-19); BLOOD UREA NITROGEN 13 mg/dL (7-20); CALCIUM 8.2 mg/dL (8.4-10.2); CARBON DIOXIDE 27 mmol/L (22-30); CHLORIDE 105 mmol/L (98-107); GLUCOSE 84 mg/dL (75-110); POTASSIUM 3.9 mmol/L (3.6-5.0)
[2019-11-05] MEDS: INSULIN LISPRO 100 UNIT/ML 3 ML VIAL SUBCUT SCH ×4 (07:18→22:00)
[2019-11-05] MEDS: KETOROLAC TROMETHAMINE INJ/PF 30 MG/1 ML SDV IV PRN ×2 (09:44→18:14)
[2019-11-05] MEDS: ENOXAPARIN SODIUM INJ 40 MG/0.4 ML DISP.SYRIN SUBCUT SCH (09:44)
[2019-11-05] MEDS: ASPIRIN 81 MG TABLET, ENT COATED PO SCH (09:44)
[2019-11-05] MEDS: GLIPIZIDE 5 MG TABLET PO SCH ×2 (09:44→18:03)
[2019-11-05] MEDS: DOCUSATE SODIUM 100 MG CAPSULE PO SCH (09:44)
[2019-11-05] MEDS: FAMOTIDINE 20 MG TABLET PO SCH ×2 (09:44→21:05)
[2019-11-05] MEDS: INSULIN GLARGINE,HUM.REC.ANLOG 1,000 UNIT/10 ML VIAL SUBCUT SCH (11:03)
[2019-11-05] MEDS ORDERED: ACETAMINOPHEN 325 MG TABLET PO PRN (11:23)
--- NOTE | 2019-11-05 11:32 | PDOC PROGRESS REPORT ---
Subjective Progress Note for:: 11/05/19 Subjective:: Patient feels well today. Denies any fevers or chills. Still rates pain about a 2/5. Otherwise has no significant complaints. We discussed plan of care. Reason For Visit: CELLULITIS Physical Exam Vital Signs: Temp Pulse Resp BP Pulse Ox 97.6 F 81 18 139/68 H 99 11/05/19 11:16 11/05/19 11:16 11/05/19 11:16 11/05/19 11:16 11/05/19 11:16 Intake & Output 11/04/19 11/05/19 11/06/19 06:59 06:59 06:59 Intake Total 3150 3622 Output Total 750 1470 Balance 2400 2152 Weight 112.5 kg 112.2 kg Neck exam: ABSENT: JVD Respiratory exam: PRESENT: clear to auscultation [place], unlabored. ABSENT: tachypnea, wheezes Cardiovascular exam: PRESENT: RRR, +S1, +S2. ABSENT: tachycardia GI/Abdominal exam: PRESENT: normal bowel sounds, soft. ABSENT: rebound, rigid, tenderness Extremities exam: PRESENT: other - Left TMP stump and clean dressing. [place] drains in place Neurological exam: PRESENT: alert, awake Results Laboratory Results: 11/05/19 05:42 11/05/19 05:42 11/04/19 11/05/19 11/05/19 17:32 05:42 05:42 WBC 8.2 RBC 3.79 L Hgb 11.0 L Hct 31.6 L MCV 83 MCH 29.1 MCHC 34.9 RDW 13.0 Plt Count 269 Seg Neutrophils % 66.1 Sodium 138.7 Potassium 3.9 Chloride 105 Carbon Dioxide 27 Anion Gap 7 BUN 13 Creatinine 0.72 0.82 Est GFR ( Amer) > 60 > 60 Glucose 84 Calcium 8.2 L 11/02/19 20:22 Foot - Left Gram Stain - Final 11/02/19 20:22 Foot - Left Wound Culture - Final Staphylococcus Aureus Enterococcus Faecalis(Group D) Group G Beta Streptococcus Prevotella Species Anaerococcus (Peptostrep) Sp. 11/02/19 17:05 Foot - Bottom Gram Stain - Final 11/02/19 17:05 Foot - Bottom Wound Culture - Final Staphylococcus Aureus Enterococcus Faecalis(Group D) Group G Beta Streptococcus Impressions: Lower Extremity MRI 11/02/19 00:00 IMPRESSION: 1. Extremely limited evaluation due to degree of motion on all series. Within the limits of the examination, there is no evidence of osteomyelitis. 2. Skin thickening and subcutaneous edema involving the plantar surface at the distal aspect of the 3rd digit metatarsal and proximal phalanx. Foci of gas as seen on radiograph. The possible radiopaque foreign bodies are not definitely identified on MRI. Foot X-Ray 11/02/19 13:08 IMPRESSION: Soft tissue emphysema at the left foot, concerning for necrotizing soft tissue infection. Small radiopaque densities within the plantar soft tissues in between the 3rd and 4th proximal phalanges, please correlate with clinical exam to evaluate for foreign bodies. No plain radiographic evidence for osteomyelitis. If there is persistent clinical concern, contrast-enhanced MRI can be obtained for further evaluation. Assessment and Plan - Diagnosis (1) Left foot gas gangrene Is this a current diagnosis for this admission?: Yes Plan: Status post left transmetatarsal amputation 11/03/2019 Leukocytosis is resolved Wound culture as expected is polymicrobial growing MSSA, Streptococcus species, Prevotella and enterococcus. Discontinue vancomycin. Continue ceftriaxone and Flagyl. Day 3 of antibiotics. Blood cultures negative for 48 hours now Pain is well controlled. Tylenol and Percocet as needed. Toradol for breakthrough IV. Continue physical therapy. I have discussed with surgery and patient is w eightbearing on the left heel but NWB to front of left foot. Surgery following (2) Diabetes type 2, uncontrolled Qualifiers: Glycemic state: with hyperglycemia Qualified Code(s): E11.65 - Type 2 diabetes mellitus with hyperglycemia Is this a current diagnosis for this admission?: Yes Plan: Continue patient's dose of glipizide 5 mg twice daily. However hemoglobin A1c i s 9.9 and patient will likely ultimately require insulin. On Lantus 12 units. Sugars within acceptable limits. Continue sliding scale insulin and Accu-Cheks (3) Hypertension Is this a current diagnosis for this admission?: Yes Plan: Documented history of hypertension. However medication reconciliation shows is not on any antihypertensives. BP has mostly been in the 120s to 130s systolic with diastolic in the 60s to 70s while in the hospital. We will continue to monitor and hold off on antihypertensives at this time. - Time Time Spent with patient: Less than 15 minutes
--- NOTE | 2019-11-05 16:15 | PDOC PROGRESS REPORT ---
Subjective Progress Note for:: 11/05/19 Reason For Visit: CELLULITIS Physical Exam Vital Signs: Temp Pulse Resp BP Pulse Ox 97.6 F 66 16 142/68 H 97 11/05/19 15:18 11/05/19 15:18 11/05/19 15:18 11/05/19 15:18 11/05/19 15:18 Intake & Output 11/04/19 11/05/19 11/06/19 06:59 06:59 06:59 Intake Total 3150 3622 618 Output Total 750 1470 Balance 2400 2152 618 Weight 112.5 kg 112.2 kg Results Laboratory Results: 11/05/19 05:42 11/05/19 05:42 11/04/19 11/05/19 11/05/19 17:32 05:42 05:42 WBC 8.2 RBC 3.79 L Hgb 11.0 L Hct 31.6 L MCV 83 MCH 29.1 MCHC 34.9 RDW 13.0 Plt Count 269 Seg Neutrophils % 66.1 Sodium 138.7 Potassium 3.9 Chloride 105 Carbon Dioxide 27 Anion Gap 7 BUN 13 Creatinine 0.72 0.82 Est GFR ( Amer) > 60 > 60 Glucose 84 Calcium 8.2 L 11/02/19 20:22 Foot - Left Gram Stain - Final 11/02/19 20:22 Foot - Left Wound Culture - Final Staphylococcus Aureus Enterococcus Faecalis(Group D) Group G Beta Streptococcus Prevotella Species Anaerococcus (Peptostrep) Sp. 11/02/19 17:05 Foot - Bottom Gram Stain - Final 11/02/19 17:05 Foot - Bottom Wound Culture - Final Staphylococcus Aureus Enterococcus Faecalis(Group D) Group G Beta Streptococcus Impressions: Lower Extremity MRI 11/02/19 00:00 IMPRESSION: 1. Extremely limited evaluation due to degree of motion on all series. Within the limits of the examination, there is no evidence of osteomyelitis. 2. Skin thickening and subcutaneous edema involving the plantar surface at the distal aspect of the 3rd digit metatarsal and proximal phalanx. Foci of gas as seen on radiograph. The possible radiopaque foreign bodies are not definitely identified on MRI. Foot X-Ray 11/02/19 13:08 IMPRESSION: Soft tissue emphysema at the left foot, concerning for necrotizing soft tissue infection. Small radiopaque densities within the plantar soft tissues in between the 3rd and 4th proximal phalanges, please correlate with clinical exam to evaluate for foreign bodies. No plain radiographic evidence for osteomyelitis. If there is persistent clinical concern, contrast-enhanced MRI can be obtained for further evaluation. Assessment & Plan - Diagnosis (1) Left foot gas gangrene Is this a current diagnosis for this admission?: Yes - Time Time Spent with patient: Less than 15 minutes - Plan Summary Plan Summary: This is a 64-year-old male with gangrene of the left foot, requiring transmetatarsal amputation. The patient has bruising and discoloration of the left lateral foot. There is no foul smell or obvious drainage. The patient has a Langlois drain in place. I am concerned that with this bruising, it may represent non-viability of the tissue on the lateral portion of the left foot. The patient should elevate the foot, above the level of the heart. I have recommended close monitoring to ensure that this bruising improves. If it continues to worsen, or necrosis progresses, the patient may require a higher level of amputation. I will check the foot again tomorrow, to monitor the patient's progress. This has been discussed at length with the patient and his family. They are in agreement with the treatment plan, and all of their questions have been answered.
[2019-11-05] MEDS: CEFTRIAXONE 1 GM/D5W RTU 1 GM/50 ML RTUPB IV SCH (18:04)
[2019-11-05] MEDS: ATORVASTATIN CALCIUM 10 MG TABLET PO SCH (21:05)
[2019-11-05] MEDS: TEMAZEPAM 7.5 MG CAPSULE PO PRN (21:06)
[2019-11-06] MEDS: METRONIDAZOLE 500 MG/NS RTU 500 MG/100 ML RTUPB IV SCH ×5 (00:50→23:50)
[2019-11-06] MEDS: OXYCODONE-ACETAMINOPHEN 5-325 MG TABLET PO PRN ×2 (05:00→17:33)
[2019-11-06] MEDS: INSULIN LISPRO 100 UNIT/ML 3 ML VIAL SUBCUT SCH ×4 (07:33→21:55)
[2019-11-06] MEDS: ENOXAPARIN SODIUM INJ 40 MG/0.4 ML DISP.SYRIN SUBCUT SCH (09:42)
[2019-11-06] MEDS: FAMOTIDINE 20 MG TABLET PO SCH ×2 (09:42→21:00)
[2019-11-06] MEDS: GLIPIZIDE 5 MG TABLET PO SCH ×2 (09:42→17:33)
[2019-11-06] MEDS: DOCUSATE SODIUM 100 MG CAPSULE PO SCH (09:42)
[2019-11-06] MEDS: INSULIN GLARGINE,HUM.REC.ANLOG 1,000 UNIT/10 ML VIAL SUBCUT SCH (09:42)
[2019-11-06] MEDS: ASPIRIN 81 MG TABLET, ENT COATED PO SCH (09:42)
[2019-11-06] MEDS: KETOROLAC TROMETHAMINE INJ/PF 30 MG/1 ML SDV IV PRN (09:51)
--- NOTE | 2019-11-06 14:26 | PDOC PROGRESS REPORT ---
Subjective Progress Note for:: 11/06/19 Reason For Visit: CELLULITIS Patient has no complaints. He has not been out of bed today per instructions. Tolerating a diet. No fever last night. Physical Exam Vital Signs: Temp Pulse Resp BP Pulse Ox 98.1 F 64 18 153/72 H 98 11/06/19 10:43 11/06/19 10:43 11/06/19 10:43 11/06/19 10:43 11/06/19 10:43 Intake & Output 11/05/19 11/06/19 11/07/19 06:59 06:59 06:59 Intake Total 3622 1628 Output Total 1470 1210 Balance 2152 418 Weight 112.2 kg 112 kg General appearance: PRESENT: no acute distress, other - He is accompanied by family members Musculoskeletal exam: PRESENT: other - On the left transmetatarsal stump e xamined. The foot is warm; there is a significant amount of discoloration involving the anterior or superior flap, with moderate epidermal lysis. Drain removed earlier today. Able to express minimal sanguinous fluid from incision. No obvious cellulitis. Strong posterior tibial pulse Results Laboratory Results: 11/05/19 05:42 11/05/19 05:42 Impressions: Lower Extremity MRI 11/02/19 00:00 IMPRESSION: 1. Extremely limited evaluation due to degree of motion on all series. Within the limits of the examination, there is no evidence of osteomyelitis. 2. Skin thickening and subcutaneous edema involving the plantar surface at the distal aspect of the 3rd digit metatarsal and proximal phalanx. Foci of gas as seen on radiograph. The possible radiopaque foreign bodies are not definitely identified on MRI. Foot X-Ray 11/02/19 13:08 IMPRESSION: Soft tissue emphysema at the left foot, concerning for necrotizing soft tissue infection. Small radiopaque densities within the plantar soft tissues in between the 3rd and 4th proximal phalanges, please correlate with clinical exam to evaluate for foreign bodies. No plain radiographic evidence for osteomyelitis. If there is persistent clinical concern, contrast-enhanced MRI can be obtained for further evaluation. Assessment & Plan - Diagnosis (1) Necrotizing fasciitis of lower leg Is this a current diagnosis for this admission?: Yes Plan: Impression: Patient is 4 days status post left transmetatarsal amputation for infected, nonviable distal foot. Operative closure remains intact, however the condition of the superior skin flap, and presence of minimal sanguinous drainage suggest the surgical wound is at risk for failure. Recommendations 1. With family at bedside, including the daughter who is a registered nursing professor, I explained that the stump is not out of the [place]. There is an element of epidermal lysis, and at-risk skin involving the dorsal flap. There is no immediate indication to change clinical course however. Suggest continuing empiric antibiotic therapy, and refraining from physical therapy today. 2. If the discoloration, and drainage do not luis felipe, wound may require partial opening, debridement, wound VAC placement etc. This scenario was discussed at bedside today. 3. We will continue to follow the surgical closure closely. - Time Time Spent with patient: 15-24 minutes Medications reviewed and adjusted accordingly: Yes Anticipated discharge: Home
[2019-11-06] MEDS ORDERED: ONDANSETRON HCL INJ/PF 4 MG/2 ML SDV IV PRN (14:30)
--- NOTE | 2019-11-06 15:06 | PDOC PROGRESS REPORT ---
Subjective Progress Note for:: 11/06/19 Subjective:: Patient feels well today. Notably had some increased pain in stump after working with physical therapy yesterday. Otherwise has no breathing difficulties and no other complaints Reason For Visit: CELLULITIS Physical Exam Vital Signs: Temp Pulse Resp BP Pulse Ox 98.1 F 64 18 153/72 H 98 11/06/19 10:43 11/06/19 10:43 11/06/19 10:43 11/06/19 10:43 11/06/19 10:43 Intake & Output 11/05/19 11/06/19 11/07/19 06:59 06:59 06:59 Intake Total 3622 1628 100 Output Total 1470 1210 Balance 2152 418 100 Weight 112.2 kg 112 kg General appearance: PRESENT: no acute distress, cooperative Neck exam: ABSENT: JVD Respiratory exam: PRESENT: unlabored. ABSENT: accessory muscle use, retraction, tachypnea Extremities exam: PRESENT: other - Left foot stump in clean dressing Neurological exam: PRESENT: alert, awake Psychiatric exam: ABSENT: agitated, anxious Focused psych exam: ABSENT: pressured speech Results Laboratory Results: 11/05/19 05:42 11/05/19 05:42 Impressions: Lower Extremity MRI 11/02/19 00:00 IMPRESSION: 1. Extremely limited evaluation due to degree of motion on all series. Within the limits of the examination, there is no evidence of osteomyelitis. 2. Skin thickening and subcutaneous edema involving the plantar surface at the distal aspect of the 3rd digit metatarsal and proximal phalanx. Foci of gas as seen on radiograph. The possible radiopaque foreign bodies are not definitely identified on MRI. Foot X-Ray 11/02/19 13:08 IMPRESSION: Soft tissue emphysema at the left foot, concerning for necrotizing soft tissue infection. Small radiopaque densities within the plantar soft tissues in between the 3rd and 4th proximal phalanges, please correlate with clinical exam to evaluate for foreign bodies. No plain radiographic evidence for osteomyelitis. If there is persistent clinical concern, contrast-enhanced MRI can be obtained for further evaluation. Assessment and Plan - Diagnosis (1) Left foot gas gangrene Is this a current diagnosis for this admission?: Yes Plan: Status post left transmetatarsal amputation 11/03/2019 Wound culture as expected is polymicrobial growing MSSA, Streptococcus species, Prevotella and enterococcus. Continue ceftriaxone and Flagyl. Day 4 of antibiotics. Blood cultures negative so far Tylenol and Percocet as needed. Surgery following and recommending patient be nonweightbearing for now given bruising noted in the left stump. Surgery guiding management of this (2) Diabetes type 2, uncontrolled Qualifiers: Glycemic state: with hyperglycemia Qualified Code(s): E11.65 - Type 2 diabetes mellitus with hyperglycemia Is this a current diagnosis for this admission?: Yes Plan: Continue patient's dose of glipizide 5 mg twice daily. However hemoglobin A1c is 9.9 and patient will likely ultimately require insulin. On Lantus 12 units. Sugars within acceptable limits. Continue sliding scale insulin and Accu-Cheks (3) Hypertension Is this a current diagnosis for this admission?: Yes Plan: Documented history of hypertension. However medication reconciliation shows is not on any antihypertensives. BP starting to get elevated today. I will discontinue Toradol as this causes elevated blood pressures. If BP continues to stay elevated by tomorrow, I will start patient on low-dose of lisinopril. - Time Time Spent with patient: 15-24 minutes
[2019-11-06] MEDS ORDERED: PROMETHAZINE HCL INJ 25 MG/1 ML VIAL IV PRN (15:30)
[2019-11-06] MEDS: CEFTRIAXONE 1 GM/D5W RTU 1 GM/50 ML RTUPB IV SCH (17:34)
[2019-11-06] MEDS: TEMAZEPAM 7.5 MG CAPSULE PO PRN (20:54)
[2019-11-06] MEDS: ATORVASTATIN CALCIUM 10 MG TABLET PO SCH (21:00)
[2019-11-07] MEDS: OXYCODONE-ACETAMINOPHEN 5-325 MG TABLET PO PRN ×3 (05:08→22:18)
[2019-11-07] MEDS: METRONIDAZOLE 500 MG/NS RTU 500 MG/100 ML RTUPB IV SCH ×4 (05:09→23:00)
[2019-11-07] MEDS: INSULIN LISPRO 100 UNIT/ML 3 ML VIAL SUBCUT SCH ×4 (07:19→22:39)
[2019-11-07] MEDS: GLIPIZIDE 5 MG TABLET PO SCH ×2 (09:00→17:18)
[2019-11-07] MEDS: DOCUSATE SODIUM 100 MG CAPSULE PO SCH (09:00)
[2019-11-07] MEDS: ASPIRIN 81 MG TABLET, ENT COATED PO SCH (09:00)
[2019-11-07] MEDS: FAMOTIDINE 20 MG TABLET PO SCH ×2 (09:00→22:18)
[2019-11-07] MEDS: ENOXAPARIN SODIUM INJ 40 MG/0.4 ML DISP.SYRIN SUBCUT SCH (09:01)
[2019-11-07] MEDS: INSULIN GLARGINE,HUM.REC.ANLOG 1,000 UNIT/10 ML VIAL SUBCUT SCH (09:02)
--- NOTE | 2019-11-07 12:21 | PDOC PROGRESS REPORT ---
Subjective Progress Note for:: 11/07/19 Subjective:: feels ok, no c/o fever chills or pain Reason For Visit: CELLULITIS Physical Exam Vital Signs: Temp Pulse Resp BP Pulse Ox 97.7 F 60 16 154/65 H 97 11/07/19 07:56 11/07/19 07:56 11/07/19 07:56 11/07/19 07:56 11/07/19 07:56 Intake & Output 11/06/19 11/07/19 11/08/19 06:59 06:59 06:59 Intake Total 1628 1860 150 Output Total 1210 1450 Balance 418 410 150 Weight 112 kg 116.4 kg General appearance: PRESENT: no acute distress Head exam: PRESENT: normocephalic Eye exam: PRESENT: EOMI Mouth exam: PRESENT: moist Teeth exam: PRESENT: poor dentation Neck exam: PRESENT: full ROM Respiratory exam: PRESENT: clear to auscultation [place] Cardiovascular exam: PRESENT: RRR Pulses: PRESENT: normal radial pulses, normal femoral pulses Breast: PRESENT: Normal GI/Abdominal exam: PRESENT: soft Rectal exam: PRESENT: deferred Musculoskeletal exam: PRESENT: other - left transmet site still ecchymotic with compression, was able to drain serosanguanous fluid from btw suture line, no pus however, no foul smelling fluid it appears as old blood and serous fluid Neurological exam: PRESENT: alert, awake Psychiatric exam: PRESENT: appropriate affect Skin exam: PRESENT: dry Results Laboratory Results: 11/05/19 05:42 11/05/19 05:42 Impressions: Lower Extremity MRI 11/02/19 00:00 IMPRESSION: 1. Extremely limited evaluation due to degree of motion on all series. Within the limits of the examination, there is no evidence of osteomyelitis. 2. Skin thickening and subcutaneous edema involving the plantar surface at the distal aspect of the 3rd digit metatarsal and proximal phalanx. Foci of gas as seen on radiograph. The possible radiopaque foreign bodies are not definitely identified on MRI. Foot X-Ray 11/02/19 13:08 IMPRESSION: Soft tissue emphysema at the left foot, concerning for necrotizing soft tissue infection. Small radiopaque densities within the plantar soft tissues in between the 3rd and 4th proximal phalanges, please correlate with clinical exam to evaluate for foreign bodies. No plain radiographic evidence for osteomyelitis. If there is persistent clinical concern, contrast-enhanced MRI can be obtained for further evaluation. Assessment & Plan - Time Time Spent with patient: 35 or more minutes - Plan Summary Plan Summary: impression - s/p transmet of left foot still unsure if it will require opeing and debridement only able to express serous fluid today, no pus will cont iv abx culture results reviewed.
--- NOTE | 2019-11-07 17:05 | Progress Note ---
Provider Note Provider Note: I reevaluated Mr. Shell's foot this afternoon. It still seems that he is got some serous drainage from the suture line therefore removed 3 sutures from the midportion of the suture line. Visualization of the wound revealed it to be deep down to palpable bone but there was no evidence of any purulent drainage from the depths of the wound. The dark skin on the dorsal aspect of the incision is consistent with epidermal lysis and the some of this was debrided. We will start wet-to-dry dressing changes to the foot with normal saline and have this changed 3 times daily. At this point I still do not feel like there is need for revision would like to continue dressing changes and see if there developed some granulation tissue. He does have palpable pedal pulses.
--- NOTE | 2019-11-07 18:29 | PDOC PROGRESS REPORT ---
Subjective Progress Note for:: 11/07/19 Subjective:: Patient feels well. Pain is better controlled. Patient will like to be nonweightbearing on left leg to allow for proper healing. Patient denies any shortness of breath chest pain fever or chills. Reason For Visit: CELLULITIS Physical Exam Vital Signs: Temp Pulse Resp BP Pulse Ox 98.2 F 76 17 170/71 H 95 11/07/19 15:43 11/07/19 15:43 11/07/19 15:43 11/07/19 15:43 11/07/19 15:43 Intake & Output 11/06/19 11/07/19 11/08/19 06:59 06:59 06:59 Intake Total 1628 1860 1306 Output Total 1210 1450 1550 Balance 418 410 -244 Weight 112 kg 116.4 kg 116.4 kg General appearance: PRESENT: no acute distress, cooperative Neck exam: ABSENT: JVD Respiratory exam: PRESENT: clear to auscultation [place] Extremities exam: PRESENT: other - Some bruising noted at left foot stump without any purulent drainage Results Laboratory Results: 11/05/19 05:42 11/05/19 05:42 11/02/19 13:22 Blood Blood Culture - Final NO GROWTH IN 5 DAYS 11/02/19 13:22 Blood Blood Culture - Final NO GROWTH IN 5 DAYS Impressions: Lower Extremity MRI 11/02/19 00:00 IMPRESSION: 1. Extremely limited evaluation due to degree of motion on all series. Within the limits of the examination, there is no evidence of osteomyelitis. 2. Skin thickening and subcutaneous edema involving the plantar surface at the distal aspect of the 3rd digit metatarsal and proximal phalanx. Foci of gas as seen on radiograph. The possible radiopaque foreign bodies are not definitely identified on MRI. Foot X-Ray 11/02/19 13:08 IMPRESSION: Soft tissue emphysema at the left foot, concerning for necrotizing soft tissue infection. Small radiopaque densities within the plantar soft tissues in between the 3rd and 4th proximal phalanges, please correlate with clinical exam to evaluate for foreign bodies. No plain radiographic evidence for osteomyelitis. If there is persistent clinical concern, contrast-enhanced MRI can be obtained for further evaluation. Assessment and Plan - Diagnosis (1) Left foot gas gangrene Is this a current diagnosis for this admission?: Yes Plan: Status post left transmetatarsal amputation 11/03/2019 Wound culture as expected is polymicrobial growing MSSA, Streptococcus species, Prevotella and enterococcus. Continue ceftriaxone and Flagyl. Day 5 of antibiotics. Blood cultures negative so far Tylenol and Percocet as needed. Surgery following and guiding management. (2) Diabetes type 2, uncontrolled Qualifiers: Glycemic state: with hyperglycemia Qualified Code(s): E11.65 - Type 2 diabetes mellitus with hyperglycemia Is this a current diagnosis for this admission?: Yes Plan: Continue patient's dose of glipizide 5 mg twice daily. However hemoglobin A1c is 9.9 and patient will likely ultimately require insulin. On Lantus 12 units. Sugars within acceptable limits. Continue sliding scale insulin and Accu-Cheks (3) Hypertension Is this a current diagnosis for this admission?: Yes Plan: Starting patient on lisinopril today as blood pressures remain high. - Time Time Spent with patient: Less than 15 minutes
[2019-11-07] MEDS: CEFTRIAXONE 1 GM/D5W RTU 1 GM/50 ML RTUPB IV SCH (18:49)
[2019-11-07] MEDS ORDERED: LISINOPRIL 10 MG TABLET PO ONE (19:00)
[2019-11-07] MEDS: ATORVASTATIN CALCIUM 10 MG TABLET PO SCH (22:18)
[2019-11-07] MEDS: TEMAZEPAM 7.5 MG CAPSULE PO PRN (22:18)
[2019-11-08] MEDS: METRONIDAZOLE 500 MG/NS RTU 500 MG/100 ML RTUPB IV SCH ×3 (05:24→18:02)
[2019-11-08] MEDS: OXYCODONE-ACETAMINOPHEN 5-325 MG TABLET PO PRN ×3 (06:59→22:30)
[2019-11-08] MEDS: INSULIN LISPRO 100 UNIT/ML 3 ML VIAL SUBCUT SCH ×4 (07:30→21:49)
[2019-11-08] MEDS: FAMOTIDINE 20 MG TABLET PO SCH ×2 (09:02→21:49)
[2019-11-08] MEDS: GLIPIZIDE 5 MG TABLET PO SCH ×2 (09:03→17:20)
[2019-11-08] MEDS: ASPIRIN 81 MG TABLET, ENT COATED PO SCH (09:03)
[2019-11-08] MEDS: LISINOPRIL 10 MG TABLET PO SCH (09:03)
[2019-11-08] MEDS: DOCUSATE SODIUM 100 MG CAPSULE PO SCH (09:04)
[2019-11-08] MEDS: ENOXAPARIN SODIUM INJ 40 MG/0.4 ML DISP.SYRIN SUBCUT SCH (09:04)
[2019-11-08] MEDS: INSULIN GLARGINE,HUM.REC.ANLOG 1,000 UNIT/10 ML VIAL SUBCUT SCH (09:09)
--- NOTE | 2019-11-08 10:26 | PDOC PROGRESS REPORT ---
Subjective Progress Note for:: 11/08/19 Reason For Visit: CELLULITIS Physical Exam Vital Signs: Temp Pulse Resp BP Pulse Ox 97.5 F 71 16 164/71 H 94 11/08/19 07:20 11/08/19 07:20 11/08/19 07:20 11/08/19 07:20 11/08/19 07:20 Intake & Output 11/07/19 11/08/19 11/09/19 06:59 06:59 06:59 Intake Total 1860 1656 Output Total 1450 2350 Balance 410 -694 Weight 116.4 kg 116.4 kg Results Laboratory Results: 11/05/19 05:42 11/05/19 05:42 11/02/19 13:22 Blood Blood Culture - Final NO GROWTH IN 5 DAYS 11/02/19 13:22 Blood Blood Culture - Final NO GROWTH IN 5 DAYS Impressions: Lower Extremity MRI 11/02/19 00:00 IMPRESSION: 1. Extremely limited evaluation due to degree of motion on all series. Within the limits of the examination, there is no evidence of osteomyelitis. 2. Skin thickening and subcutaneous edema involving the plantar surface at the distal aspect of the 3rd digit metatarsal and proximal phalanx. Foci of gas as seen on radiograph. The possible radiopaque foreign bodies are not definitely identified on MRI. Foot X-Ray 11/02/19 13:08 IMPRESSION: Soft tissue emphysema at the left foot, concerning for necrotizing soft tissue infection. Small radiopaque densities within the plantar soft tissues in between the 3rd and 4th proximal phalanges, please correlate with clinical exam to evaluate for foreign bodies. No plain radiographic evidence for osteomyelitis. If there is persistent clinical concern, contrast-enhanced MRI can be obtained for further evaluation. Assessment & Plan - Diagnosis (1) Left foot gas gangrene Is this a current diagnosis for this admission?: Yes - Time Time Spent with patient: Less than 15 minutes - Plan Summary Plan Summary: This is a 64-year-old male status post transmetatarsal amputation. Overall, his bruising and erythema are improving. The patient still has a mild amount of necrosis at the skin edge. The patient underwent opening of the incision with washout yesterday. The patient has packing in place. The patient will require home health for dressing changes. Once the wound is stable, he may benefit from a wound VAC. Continue with damp to dry dressing changes for now. 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 I will continue to follow this patient very closely with you.
--- NOTE | 2019-11-08 16:34 | PDOC PROGRESS REPORT ---
Subjective Progress Note for:: 11/08/19 Subjective:: Patient's pain remains well controlled. Denies any shortness of breath fever or chills. Surgery assessing his surgical wound. Stitches were removed today according to patient. Reason For Visit: CELLULITIS Physical Exam Vital Signs: Temp Pulse Resp BP Pulse Ox 97.7 F 61 16 140/68 H 97 11/08/19 12:00 11/08/19 12:00 11/08/19 12:00 11/08/19 12:00 11/08/19 12:00 Intake & Output 11/07/19 11/08/19 11/09/19 06:59 06:59 06:59 Intake Total 1860 1656 100 Output Total 1450 2350 Balance 410 -694 100 Weight 116.4 kg 116.4 kg General appearance: PRESENT: no acute distress, cooperative Respiratory exam: PRESENT: clear to auscultation [place] Cardiovascular exam: PRESENT: +S1, +S2 GI/Abdominal exam: PRESENT: normal bowel sounds, soft. ABSENT: rebound, rigid, tenderness Neurological exam: PRESENT: alert, awake Results Laboratory Results: 11/05/19 05:42 11/05/19 05:42 11/02/19 13:22 Blood Blood Culture - Final NO GROWTH IN 5 DAYS 11/02/19 13:22 Blood Blood Culture - Final NO GROWTH IN 5 DAYS Impressions: Lower Extremity MRI 11/02/19 00:00 IMPRESSION: 1. Extremely limited evaluation due to degree of motion on all series. Within the limits of the examination, there is no evidence of osteomyelitis. 2. Skin thickening and subcutaneous edema involving the plantar surface at the distal aspect of the 3rd digit metatarsal and proximal phalanx. Foci of gas as seen on radiograph. The possible radiopaque foreign bodies are not definitely identified on MRI. Foot X-Ray 11/02/19 13:08 IMPRESSION: Soft tissue emphysema at the left foot, concerning for necrotizing soft tissue infection. Small radiopaque densities within the plantar soft tissues in between the 3rd and 4th proximal phalanges, please correlate with clinical exam to evaluate for foreign bodies. No plain radiographic evidence for osteomyelitis. If there is persistent clinical concern, contrast-enhanced MRI can be obtained for further evaluation. Assessment and Plan - Diagnosis (1) Left foot gas gangrene Is this a current diagnosis for this admission?: Yes Plan: Status post left transmetatarsal amputation 11/03/2019 Wound culture as expected is polymicrobial growing MSSA, Streptococcus species, Prevotella and enterococcus. Continue ceftriaxone and Flagyl. Day 6 of antibiotics. Blood cultures negative so far Tylenol and Percocet as needed. Surgery guiding current management. (2) Diabetes mellitus type 2 in obese Is this a current diagnosis for this admission?: Yes Plan: Continue patient's dose of glipizide 5 mg twice daily. However hemoglobin A1c is 9.9 and patient will likely ultimately require insulin. On Lantus 12 units. Continue sliding scale insulin and Accu-Cheks Sugars remain within acceptable limits. (3) Hypertension Is this a current diagnosis for this admission?: Yes Plan: Continue lisinopril 20 mg daily. - Time Time Spent with patient: Less than 15 minutes
[2019-11-08] MEDS: CEFTRIAXONE 1 GM/D5W RTU 1 GM/50 ML RTUPB IV SCH (17:20)
[2019-11-08] MEDS: TEMAZEPAM 7.5 MG CAPSULE PO PRN (20:37)
[2019-11-08] MEDS: ATORVASTATIN CALCIUM 10 MG TABLET PO SCH (21:49)
[2019-11-09] MEDS: METRONIDAZOLE 500 MG/NS RTU 500 MG/100 ML RTUPB IV SCH ×4 (00:40→17:41)
[2019-11-09] MEDS: OXYCODONE-ACETAMINOPHEN 5-325 MG TABLET PO PRN ×2 (05:35→21:42)
[2019-11-09 06:00] LABS: HEMATOCRIT 31.4 % (37.9-51.0); HEMOGLOBIN 10.9 g/dL (13.5-17.0); MEAN CORPUSCULAR HEMOGLOBIN 28.8 pg (27.0-33.4); MEAN CORPUSCULAR HGB CONC 34.7 g/dL (32.0-36.0); MEAN CORPUSCULAR VOLUME 83 fl (80-97); PLATELET COUNT 318 10^3/uL (150-450); RED BLOOD COUNT 3.78 10^6/uL (4.35-5.55); RED CELL DISTRIBUTION WIDTH 13.2 % (11.5-14.0); WHITE BLOOD COUNT 7.9 10^3/uL (4.0-10.5)
[2019-11-09 06:16] LABS: ANION GAP 8 (5-19); BLOOD UREA NITROGEN 8 mg/dL (7-20); CALCIUM 8.4 mg/dL (8.4-10.2); CARBON DIOXIDE 28 mmol/L (22-30); CHLORIDE 103 mmol/L (98-107); GLUCOSE 92 mg/dL (75-110); POTASSIUM 3.7 mmol/L (3.6-5.0)
[2019-11-09] MEDS: INSULIN LISPRO 100 UNIT/ML 3 ML VIAL SUBCUT SCH ×4 (08:55→21:43)
[2019-11-09] MEDS: ENOXAPARIN SODIUM INJ 40 MG/0.4 ML DISP.SYRIN SUBCUT SCH (09:24)
[2019-11-09] MEDS: DOCUSATE SODIUM 100 MG CAPSULE PO SCH (09:24)
[2019-11-09] MEDS: GLIPIZIDE 5 MG TABLET PO SCH ×2 (09:24→17:41)
[2019-11-09] MEDS: ASPIRIN 81 MG TABLET, ENT COATED PO SCH (09:24)
[2019-11-09] MEDS: FAMOTIDINE 20 MG TABLET PO SCH ×2 (09:24→21:43)
[2019-11-09] MEDS: LISINOPRIL 10 MG TABLET PO SCH (09:24)
[2019-11-09] MEDS: INSULIN GLARGINE,HUM.REC.ANLOG 1,000 UNIT/10 ML VIAL SUBCUT SCH (09:25)
--- NOTE | 2019-11-09 10:44 | PDOC PROGRESS REPORT ---
Subjective Progress Note for:: 11/09/19 Subjective:: Patient's pain remains well controlled. Discussed with patient that upon discharge he will be using insulin as his hemoglobin A1c was high and he has good blood sugar control on Lantus in addition to glipizide. Reason For Visit: CELLULITIS Physical Exam Vital Signs: Temp Pulse Resp BP Pulse Ox 98.5 F 59 L 16 153/68 H 95 11/09/19 07:46 11/09/19 07:46 11/09/19 07:46 11/09/19 07:46 11/09/19 07:46 Intake & Output 11/08/19 11/09/19 11/10/19 06:59 06:59 06:59 Intake Total 1656 1847 Output Total 2350 2200 Balance -694 -353 Weight 116.4 kg 112.2 kg General appearance: PRESENT: no acute distress, cooperative Neck exam: ABSENT: JVD Respiratory exam: PRESENT: unlabored. ABSENT: accessory muscle use, tachypnea Neurological exam: PRESENT: alert, awake. ABSENT: abnormal gait, aphasic Results Laboratory Results: 11/09/19 05:27 11/09/19 05:27 11/09/19 11/09/19 05:27 05:27 WBC 7.9 RBC 3.78 L Hgb 10.9 L Hct 31.4 L MCV 83 MCH 28.8 MCHC 34.7 RDW 13.2 Plt Count 318 Sodium 138.5 Potassium 3.7 Chloride 103 Carbon Dioxide 28 Anion Gap 8 BUN 8 Creatinine 0.69 Est GFR ( Amer) > 60 Glucose 92 Calcium 8.4 Impressions: Lower Extremity MRI 11/02/19 00:00 IMPRESSION: 1. Extremely limited evaluation due to degree of motion on all series. Within the limits of the examination, there is no evidence of osteomyelitis. 2. Skin thickening and subcutaneous edema involving the plantar surface at the distal aspect of the 3rd digit metatarsal and proximal phalanx. Foci of gas as seen on radiograph. The possible radiopaque foreign bodies are not definitely i dentified on MRI. Foot X-Ray 11/02/19 13:08 IMPRESSION: Soft tissue emphysema at the left foot, concerning for necrotizing soft tissue infection. Small radiopaque densities within the plantar soft tissues in between the 3rd and 4th proximal phalanges, please correlate with clinical exam to evaluate for foreign bodies. No plain radiographic evidence for osteomyelitis. If there is persistent clinical concern, contrast-enhanced MRI can be obtained for further evaluation. 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 Continue ceftriaxone and Flagyl. Day 7 of IV antibiotics. Blood cultures negative at completion. Tylenol and Percocet as needed. Rest of plan as per surgery (2) Diabetes mellitus type 2 in obese Is this a current diagnosis for this admission?: Yes Plan: However hemoglobin A1c is 9.9 and patient will likely ultimately require insulin. Blood sugars remain well controlled on his home dose of glipizide and Lantus 12 units daily which was added on admission. He has been informed that he will be discharged on Lantus. Insulin administration education will be administered by his nurse. (3) Hypertension Qualifiers: Hypertension type: essential hypertension Qualified Code(s): I10 - Essential (primary) hypertension Is this a current diagnosis for this admission?: Yes Plan: Continue lisinopril 20 mg daily. - Time Time Spent with patient: Less than 15 minutes
--- NOTE | 2019-11-09 14:35 | PDOC PROGRESS REPORT ---
Subjective Progress Note for:: 11/09/19 Reason For Visit: CELLULITIS Physical Exam Vital Signs: Temp Pulse Resp BP Pulse Ox 97.6 F 61 16 142/67 H 99 11/09/19 11:10 11/09/19 11:10 11/09/19 11:10 11/09/19 11:10 11/09/19 11:10 Intake & Output 11/08/19 11/09/19 11/10/19 06:59 06:59 06:59 Intake Total 1656 1947 340 Output Total 2350 2200 600 Balance -254 -253 -260 Weight 116.4 kg 112.2 kg Results Laboratory Results: 11/09/19 05:27 11/09/19 05:27 11/09/19 11/09/19 05:27 05:27 WBC 7.9 RBC 3.78 L Hgb 10.9 L Hct 31.4 L MCV 83 MCH 28.8 MCHC 34.7 RDW 13.2 Plt Count 318 Sodium 138.5 Potassium 3.7 Chloride 103 Carbon Dioxide 28 Anion Gap 8 BUN 8 Creatinine 0.69 Est GFR ( Amer) > 60 Glucose 92 Calcium 8.4 Impressions: Lower Extremity MRI 11/02/19 00:00 IMPRESSION: 1. Extremely limited evaluation due to degree of motion on all series. Within the limits of the examination, there is no evidence of osteomyelitis. 2. Skin thickening and subcutaneous edema involving the plantar surface at the distal aspect of the 3rd digit metatarsal and proximal phalanx. Foci of gas as seen on radiograph. The possible radiopaque foreign bodies are not definitely identified on MRI. Foot X-Ray 11/02/19 13:08 IMPRESSION: Soft tissue emphysema at the left foot, concerning for necrotizing soft tissue infection. Small radiopaque densities within the plantar soft tissues in between the 3rd and 4th proximal phalanges, please correlate with clinical exam to evaluate for foreign bodies. No plain radiographic evidence for osteomyelitis. If there is persistent clinical concern, contrast-enhanced MRI can be obtained for further evaluation. Assessment & Plan - Diagnosis (1) Left foot gas gangrene Is this a current diagnosis for this admission?: Yes - Time Time Spent with patient: Less than 15 minutes - Plan Summary Plan Summary: This is a 64-year-old male status post transmetatarsal amputation. His bruising and erythema are much improved. The patient still has a mild amount of necrosis at the skin edge. The patient underwent opening of the incision with washout Sunday. The patient will require home health for dressing changes. Continue with damp to dry dressings for now. director of food and beverage services for discharge planning (home health). Once home health arranged, he will be ready for discharge from a surgical standpoint.
[2019-11-09] MEDS: ATORVASTATIN CALCIUM 10 MG TABLET PO SCH (21:43)
[2019-11-10] MEDS: METRONIDAZOLE 500 MG/NS RTU 500 MG/100 ML RTUPB IV SCH (00:09)
[2019-11-10] MEDS: OXYCODONE-ACETAMINOPHEN 5-325 MG TABLET PO PRN ×2 (06:01→14:21)
[2019-11-10] MEDS: INSULIN LISPRO 100 UNIT/ML 3 ML VIAL SUBCUT SCH ×3 (07:52→17:37)
[2019-11-10] MEDS: ENOXAPARIN SODIUM INJ 40 MG/0.4 ML DISP.SYRIN SUBCUT SCH (09:25)
[2019-11-10] MEDS: LISINOPRIL 10 MG TABLET PO SCH (09:26)
[2019-11-10] MEDS: ASPIRIN 81 MG TABLET, ENT COATED PO SCH (09:26)
[2019-11-10] MEDS: DOCUSATE SODIUM 100 MG CAPSULE PO SCH (09:26)
[2019-11-10] MEDS: GLIPIZIDE 5 MG TABLET PO SCH (09:26)
[2019-11-10] MEDS: FAMOTIDINE 20 MG TABLET PO SCH (09:26)
--- NOTE | 2019-11-10 12:36 | PDOC DISCHARGE SUMMARY ---
Impression - Admit/DC Date/PCP Admission Date/Primary Care Provider: 11/02/19 15:49 Discharge Date: 11/10/19 - Discharge Diagnosis (1) Left foot gas gangrene Is this a current diagnosis for this admission?: Yes (2) Diabetes mellitus type 2 in obese Is this a current diagnosis for this admission?: Yes (3) Hypertension Is this a current diagnosis for this admission?: Yes - Additional Information Resuscitation Status: Full Code Discharge Diet: Diabetic Referrals: [facility] [Provider Group] - 11/18/19 2:45 pm WOUND CARE [Outside] - 11/20/19 10:00 am ( ) JEOVANNY AGUDELO MD [ACTIVE STAFF] - Prescriptions: Insulin Glargine,Hum.rec.anlog [Basaglar Kwikpen U-100] 12 unit SQ DAILY #1000 units RX: Docusate Sodium [Colace 100 mg Capsule] 100 mg PO DAILY #15 capsule Metronidazole [Flagyl 500 mg Tablet] 500 mg PO TID #21 tablet RX: Glipizide [Glucotrol 5 mg Tablet] 5 mg PO BID #60 Cephalexin Monohydrate [Keflex 500 mg Capsule] 500 mg PO TID #21 capsule RX: Oxycodone HCl/Acetaminophen [Percocet 5-325 mg Tablet] 1 tab PO Q6HP PRN #14 tablet PRN Reason: RX: Lisinopril [Prinivil] 20 mg PO DAILY #30 tablet Home Medications: RX: Aspirin [Ecotrin 81 mg EC Tablet] 81 mg PO DAILY 11/02/19 RX: Atorvastatin Calcium [Lipitor 20 mg Tablet] 10 mg PO DAILY 11/03/19 Cephalexin Monohydrate [Keflex 500 mg Capsule] 500 mg PO TID #21 capsule 11/10/19 Insulin Glargine,Hum.rec.anlog [Basaglar Kwikpen U-100] 12 unit SQ DAILY #1000 units 11/10/19 Metronidazole [Flagyl 500 mg Tablet] 500 mg PO TID #21 tablet 11/10/19 RX: Docusate Sodium [Colace 100 mg Capsule] 100 mg PO DAILY #15 capsule 11/10/19 RX: Glipizide [Glucotrol 5 mg Tablet] 5 mg PO BID #60 11/10/19 RX: Lisinopril [Prinivil] 20 mg PO DAILY #30 tablet 11/10/19 RX: Oxycodone HCl/Acetaminophen [Percocet 5-325 mg Tablet] 1 tab PO Q6HP PRN #14 tablet 11/10/19 History of Present Illiness History of Present Illness: BISMARK IBARRA is a 64 year old male past medical history of hypertension, hyperlipidemia, uncontrolled diabetes, presenting to ED complaining of left lower extremity swelling and pain. Patient stating that about 4 days ago he stepped on a pebble or a thorn did not make much of it went home, following day he noted some swelling, but is starting yesterday he noted that his left foot was becoming more swollen, tender, and erythematous. Pain is about 3/5 sharp and pulsating radiating proximally. Denies any fever, chills, headache, vision changes, shortness of breath, chest pain, nausea, abdominal pain, diarrhea, constipation or any urinary symptoms. Patient has history of diabetes noncompliant with medication but he started taking glipizide 5 mg p.o. twice daily 3 days ago. Hospital Course Hospital Course: Patient was admitted to the hospital for evaluation of left foot infection. MRI was done with concern for possible necrotizing fasciitis. MRI revealed gas infection of the left foot. Patient was taken to the OR and underwent surgical transmetatarsal amputation of the left foot for gas gangrene. Patient was also started on IV antibiotics initially with broad spectrum of vancomycin and ceftriaxone and Flagyl. Patient was hemodynamically stable. Patient's wound culture revealed multiple poly-microbes including MSSA. Vancomycin was discontinued patient continued ceftriaxone and Flagyl for 1 week. Patient had continued evaluation by the surgical team who performed an incision opening with washout on Sunday last week. Patient has currently been cleared by surgery for discharge and has been made weightbearing on the left heel but not on the front of the left foot by the surgical team. Surgicalist request continuation on oral antibiotics for 1 more week and for follow-up at the surgical wound clinic. Patient has been set up to follow-up at the surgical wound care clinic. Patient will be taking Keflex and Flagyl for 1 more week after which she will be reevaluated at the wound clinic to see if further antibiotics is needed. Patient is being given a front wheeled walker upon discharge to assist with ambulation. associate financial planner [facility] to ensure [facility] of [facility] health and for a knee walker. Patient has been educated by nursing on how to change his dressings and how to administer Lantus which have started patient on in addition to his glipizide given his hemoglobin A1c over 9. Patient also has a daughter who is a nursing officer and a son who is a physical therapist who can help patient with these. Patient is to continue physical therapy upon discharge. Patient also started on lisinopril 20 mg daily for hypertension. Patient is being discharged in safe and stable conditions. Physical Exam Vital Signs: Temp Pulse Resp BP Pulse Ox 97.9 F 70 16 147/71 H 99 11/10/19 07:35 11/10/19 07:35 11/10/19 07:35 11/10/19 07:35 11/10/19 07:35 Intake & Output 11/09/19 11/10/19 11/11/19 06:59 06:59 06:59 Intake Total 1947 1062 Output Total 2200 850 Balance -253 212 Weight 112.2 kg 110.4 kg General appearance: PRESENT: no acute distress, cooperative Neck exam: ABSENT: JVD Neurological exam: PRESENT: alert, awake, oriented to person, oriented to place, oriented to time Results Laboratory Results: WBC 7.9 10^3/uL (4.0-10.5) 11/09/19 05:27 RBC 3.78 10^6/uL (4.35-5.55) L 11/09/19 05:27 Hgb 10.9 g/dL (13.5-17.0) L 11/09/19 05:27 Hct 31.4 % (37.9-51.0) L 11/09/19 05:27 MCV 83 fl (80-97) 11/09/19 05:27 MCH 28.8 pg (27.0-33.4) 11/09/19 05:27 MCHC 34.7 g/dL (32.0-36.0) 11/09/19 05:27 RDW 13.2 % (11.5-14.0) 11/09/19 05:27 Plt Count 318 10^3/uL (150-450) 11/09/19 05:27 Lymph % (Auto) 23.3 % (13-45) 11/05/19 05:42 [place] % (Auto) 8.4 % (3-13) 11/05/19 05:42 Eos % (Auto) 1.7 % (0-6) 11/05/19 05:42 Baso % (Auto) 0.5 % (0-2) 11/05/19 05:42 Absolute Neuts (auto) 5.4 10^3/uL (1.7-8.2) 11/05/19 05:42 Absolute Lymphs (auto) 1.9 10^3/uL (0.5-4.7) 11/05/19 05:42 Absolute Monos (auto) 0.7 10^3/uL (0.1-1.4) 11/05/19 05:42 Absolute Eos (auto) 0.1 10^3/uL (0.0-0.6) 11/05/19 05:42 Absolute Basos (auto) 0.0 10^3/uL (0.0-0.2) 11/05/19 05:42 Seg Neutrophils % 66.1 % (42-78) 11/05/19 05:42 ESR 92 mm/hr (0-20) H 11/02/19 13:22 PT 16.2 SEC (11.4-15.4) H 11/03/19 05:57 INR 1.29 11/03/19 05:57 APTT 39.7 SEC (23.5-35.8) H 11/03/19 05:57 Sodium 138.5 mmol/L (137-145) 11/09/19 05:27 Potassium 3.7 mmol/L (3.6-5.0) 11/09/19 05:27 Chloride 103 mmol/L (98-107) 11/09/19 05:27 Carbon Dioxide 28 mmol/L (22-30) 11/09/19 05:27 Anion Gap 8 (5-19) 11/09/19 05:27 BUN 8 mg/dL (7-20) 11/09/19 05:27 Creatinine 0.69 mg/dL (0.52-1.25) 11/09/19 05:27 Est GFR ( Amer) > 60 (>60) 11/09/19 05:27 Est GFR (MDRD) Non-Af > 60 (>60) 11/09/19 05:27 Glucose 92 mg/dL (75-110) 11/09/19 05:27 POC Glucose 103 mg/dL (70-110) 11/10/19 07:08 Hemoglobin A1c % 9.9 % (4.7-6.0) H 11/03/19 05:57 Calcium 8.4 mg/dL (8.4-10.2) 11/09/19 05:27 Magnesium 2.1 mg/dL (1.6-2.3) 11/03/19 05:57 Total Bilirubin 1.3 mg/dL (0.2-1.3) 11/02/19 13:22 Direct Bilirubin 0.1 mg/dL (0.0-0.4) 11/02/19 13:22 Neonat Total Bilirubin Not Reportable 11/02/19 13:22 Neonat Direct Bilirubin Not Reportable 11/02/19 13:22 Neonat Indirect Bili Not Reportable 11/02/19 13:22 AST 21 U/L (17-59) 11/02/19 13:22 ALT 19 U/L (<50) 11/02/19 13:22 Alkaline Phosphatase 99 U/L (38-126) 11/02/19 13:22 C-Reactive Protein 220.3 mg/L (<10.0) H 11/02/19 13:22 Total Protein 8.1 g/dL (6.3-8.2) 11/02/19 13:22 Albumin 4.1 g/dL (3.5-5.0) 11/02/19 13:22 Triglycerides 82 mg/dL (<150) 11/03/19 05:57 Cholesterol 108.86 mg/dL (0-200) 11/03/19 05:57 LDL Cholesterol Direct 76 mg/dL (<100) 11/03/19 05:57 VLDL Cholesterol 16.0 mg/dL (10-31) 11/03/19 05:57 HDL Cholesterol 24 mg/dL (>40) L 11/03/19 05:57 Urine Color YELLOW 11/04/19 02:47 Urine Appearance CLEAR 11/04/19 02:47 Urine pH 5.0 (5.0-9.0) 11/04/19 02:47 Ur Specific [place] 1.008 11/04/19 02:47 Urine Protein NEGATIVE mg/dL (NEGATIVE) 11/04/19 02:47 Urine Glucose (UA) NEGATIVE mg/dL (NEGATIVE) 11/04/19 02:47 Urine Ketones NEGATIVE mg/dL (NEGATIVE) 11/04/19 02:47 Urine Blood NEGATIVE (NEGATIVE) 11/04/19 02:47 Urine Nitrite NEGATIVE (NEGATIVE) 11/04/19 02:47 Urine Bilirubin NEGATIVE (NEGATIVE) 11/04/19 02:47 Urine Urobilinogen NEGATIVE mg/dL (<2.0) 11/04/19 02:47 Ur Leukocyte Esterase TRACE (NEGATIVE) H 11/04/19 02:47 Urine WBC (Auto) 3 /HPF 11/04/19 02:47 Urine RBC (Auto) 0 /HPF 11/04/19 02:47 Urine Bacteria (Auto) TRACE /HPF 11/04/19 02:47 Urine Mucus (Auto) RARE /LPF 11/04/19 02:47 Urine Ascorbic Acid NEGATIVE (NEGATIVE) 11/04/19 02:47 Time Trough Drawn 1732 11/04/19 17:32 Vancomycin Trough 15.3 ug/mL (5.0-20.0) 11/04/19 17:32 Urine Opiates Screen NEGATIVE 11/02/19 19:15 Urine Methadone Screen NEGATIVE 11/02/19 19:15 Ur Barbiturates Screen NEGATIVE 11/02/19 19:15 Ur Phencyclidine Scrn NEGATIVE 11/02/19 19:15 Ur Amphetamines Screen NEGATIVE 11/02/19 19:15 U Benzodiazepines Scrn NEGATIVE 11/02/19 19:15 Urine Cocaine Screen NEGATIVE 11/02/19 19:15 U Marijuana (THC) Screen NEGATIVE 11/02/19 19:15 Impressions: Lower Extremity MRI 11/02/19 00:00 IMPRESSION: 1. Extremely limited evaluation due to degree of motion on all series. Within the limits of the examination, there is no evidence of osteomyelitis. 2. Skin thickening and subcutaneous edema involving the plantar surface at the distal aspect of the 3rd digit metatarsal and proximal phalanx. Foci of gas as seen on radiograph. The possible radiopaque foreign bodies are not definitely identified on MRI. Foot X-Ray 11/02/19 13:08 IMPRESSION: Soft tissue emphysema at the left foot, concerning for necrotizing soft tissue infection. Small radiopaque densities within the plantar soft tissues in between the 3rd and 4th proximal phalanges, please correlate with clinical exam to evaluate for foreign bodies. No plain radiographic evidence for osteomyelitis. If there is persistent clinical concern, contrast-enhanced MRI can be obtained for further evaluation. Plan Time Spent: Greater than 30 Minutes Stroke Is this a Stroke Patient?: No Acute Heart Failure - Is this a Heart Failure Patient?: No
[2019-11-10] MEDS: INSULIN GLARGINE,HUM.REC.ANLOG 1,000 UNIT/10 ML VIAL SUBCUT SCH (13:19)
[2019-11-10 16:42] VITALS: BP 148/88
--- NOTE | 2019-11-10 17:07 | PDOC PROGRESS REPORT ---
Subjective Progress Note for:: 11/10/19 Reason For Visit: CELLULITIS No complaints today Physical Exam Vital Signs: Temp Pulse Resp BP Pulse Ox 97.9 F 70 16 148/88 H 99 11/10/19 16:40 11/10/19 16:40 11/10/19 16:40 11/10/19 16:40 11/10/19 16:40 Intake & Output 11/09/19 11/10/19 11/11/19 06:59 06:59 06:59 Intake Total 1947 1062 Output Total 2200 850 Balance -253 212 Weight 112.2 kg 110.4 kg General appearance: PRESENT: no acute distress Musculoskeletal exam: PRESENT: other - Left foot wrapped Results Laboratory Results: 11/09/19 05:27 11/09/19 05:27 Impressions: Lower Extremity MRI 11/02/19 00:00 IMPRESSION: 1. Extremely limited evaluation due to degree of motion on all series. Within the limits of the examination, there is no evidence of osteomyelitis. 2. Skin thickening and subcutaneous edema involving the plantar surface at the distal aspect of the 3rd digit metatarsal and proximal phalanx. Foci of gas as seen on radiograph. The possible radiopaque foreign bodies are not definitely identified on MRI. Foot X-Ray 11/02/19 13:08 IMPRESSION: Soft tissue emphysema at the left foot, concerning for necrotizing soft tissue infection. Small radiopaque densities within the plantar soft tissues in between the 3rd and 4th proximal phalanges, please correlate with clinical exam to evaluate for foreign bodies. No plain radiographic evidence for osteomyelitis. If there is persistent clinical concern, contrast-enhanced MRI can be obtained for further evaluation. Assessment & Plan - Diagnosis (1) Necrotizing fasciitis of lower leg Is this a current diagnosis for this admission?: Yes Plan: Impression: Clinically improved condition of left foot, status post trans-met amputation, with close, growing multiple gram-positive and gram-negative organisms. Recommendations: 1. I believe patient can be managed on outpatient basis, dressing changes twice a day, and conversion to oral antibiotics. 2. Patient to follow-up with [facility], Dr. Trevizo, and 1 week. 3. Patient's daughter in conjunction with home health services to participate in dressing changes. 4. Surgery services will sign off at this time. Please reconsult if clinically indicated. - Time Time Spent: 30 to 50 Minutes
== END 2019-11-10 18:00 | disposition home health service (06) | DRG 239 ==
LOC: ER 12:15 → EH 15:29 → OBSVTOIN 15:49 → 4S 17:33
PROVIDERS: ADMIT Internal Medicine; ATTEND Internal Medicine
PROC: 0Y6N0Z0 Detachment at Left Foot, Complete, Open Approach (ICD-10-PCS; principal; 2019-11-02 19:45)
DX: E11.52 Type 2 diabetes mellitus with diabetic peripheral angiopathy with gangrene (principal); A48.0 Gas gangrene; M72.6 Necrotizing fasciitis; E66.9 Obesity, unspecified; B95.61 Methicillin susceptible Staphylococcus aureus infection as the cause of diseases classified elsewhere; B95.2 Enterococcus as the cause of diseases classified elsewhere; E11.65 Type 2 diabetes mellitus with hyperglycemia; I10 Essential (primary) hypertension; E78.5 Hyperlipidemia, unspecified; X58.XXXA Exposure to other specified factors, initial encounter; Y93.9 Activity, unspecified; Y92.019 Unspecified place in single-family (private) house as the place of occurrence of the external cause; Z91.14 Patient's other noncompliance with medication regimen; Z68.33 Body mass index [BMI] 33.0-33.9, adult; Z79.82 Long term (current) use of aspirin; Z79.4 Long term (current) use of insulin
CPT/HCPCS: 01480; 36415; 80048; 80053; 80061; 80202; 80307; 81001; 82565; 82962; 83036; 83735; 85025; 85027; 85610; 85652; 85730; 86140; 87040; 87070; 87075; 87077; 87186; 87205; 88307; 88311; 93005; 93010; 94799; 99285; J0131; J0696; J1650; J1815; J1885; J2250; J2405; J2704; J2765; J3010; J3370; J3490; J7030; J7060; J7120